=== PATIENT | male | born 1945 | race Caucasian/White ===

== ENCOUNTER 2017-01-06 12:46 | Inpatient (IN) | payer OTHER, MEDICARE ==
--- NOTE | 2017-01-06 13:25 | CPEKG ---
Heart Rate: 50 RR Interval: 1200 P-R Interval: 176 QRSD Interval: 106 QT Interval: 452 QTC Interval: 413 P [place]: 51 QRS [place]: -21 T Wave [place]: 46 EKG Severity - NORMAL ECG - EKG Impression: SINUS RHYTHM Electronically Signed By: Aidan Boateng 06-Jan-2017 21:07:19
[2017-01-06 13:40] LABS: % IMMATURE GRANULYOCYTES 0.6 % (0.0-1.1); HEMATOCRIT 45.8 % (40.0-51.0); HEMOGLOBIN 16.2 g/dL (13.7-17.5); MEAN CELL HEMOGLOBIN 33.1 pg (27.9-34.1); MEAN CELL HEMOGLOBIN CONCENTR. 35.4 g/dL (32.4-36.7); MEAN CELL VOLUME 93.5 fL (81.5-99.8); PLATELET COUNT 172 10^3/uL (150-400); RED CELL DISTRIBUTION WIDTH 12.8 % (11.5-15.2)
[2017-01-06 13:41] LABS: ABSOLUTE IMMATURE GRANULOCYTES 0.06 10^3/uL (0.00-0.10); ADD DIFF? NO; ADD MORPH? NO; ADD SCAN? NO; ATYPICAL LYMPHOCYTE FLAG 0 (0-99); FRAGMENT RBC FLAG 0 (0-99); LEFT SHIFT FLG 10 (0-99); LIPEMIA HEMOLYSIS FLAG 90 (0-99); PLATELET CLUMPS FLAG 0 (0-99)
[2017-01-06 13:56] LABS: ANION GAP 12 mEq/L (8-16); CALCIUM 9.5 mg/dL (8.5-10.4); CARBON DIOXIDE 24 mEq/l (22-31); CHLORIDE 108 mEq/L (97-110); CREATININE 0.8 mg/dL (0.7-1.3); GLOMERULAR FILTRATION RATE > 60; GLUCOSE 114 mg/dL (70-100); POTASSIUM 4.6 mEq/L (3.5-5.2); SODIUM 144 mEq/L (134-144)
[2017-01-06 14:07] LABS: TROPONIN I < 0.012 ng/mL (0-0.034)
[2017-01-06 14:10] LABS: INR 1.01 (0.83-1.16); PROTIME(PATIENT) 13.2 SEC (12.0-15.0)
[2017-01-06 14:11] LABS: APTT 27.5 SEC (23.0-38.0)
--- NOTE | 2017-01-06 14:42 | EDPHY ---
H & P Stated Complaint: fall skiing in november/ since/today had transient aphasia Time Seen by Provider: 01/06/17 13:19 HPI/ROS: Chief complaint: Head injury History of present illness: This is a 71-year-old male, on aspirin, who presents to the emergency department for evaluation of a head injury. Patient reports the head injury occurred in mid November, when he fell while skiing. Since then he has had intermittent headaches. He further reports ringing in his ears. Symptoms have been persistent. He is concerned today because today patient reports he started having difficulty finding words he wanted to say. Symptoms lasted approximately 30 minutes to an hour and then resolved. Patient denies other associated signs or symptoms including no paresthesias, no weakness or paralysis, no bowel or bladder dysfunction. No other injuries reported. Review of systems: A 10 point review of systems was obtained and other than described above was negative - Personal History Current Tetanus/Diphtheria Vaccine: Yes - Medical/Surgical History Hx Asthma: No Hx Chronic Respiratory Disease: No Hx Diabetes: Yes Hx Cardiac Disease: No Hx Renal Disease: No Hx Cirrhosis: No Hx Alcoholism: No Hx HIV/AIDS: No Hx Splenectomy or Spleen Trauma: No Other PMH: htn/diab/gout - Social History Smoking Status: Never smoked - Physical Exam Exam: General Appearance: Alert, nontoxic Eyes: PERRLA Respiratory: Lungs clear to auscultation bilaterally Cardiac: Regular rate and rhythm. Gastrointestinal: Bowel sounds normal. Abdomen is soft, nondistended, nontender. Neurological: Alert and oriented x4. Cranial nerves 2-12 grossly intact. Strength and sensation intact and symmetrical. No pronator drift. Skin: No acute lesions consistent with trauma Musculoskeletal: The head is normocephalic, atraumatic. Spine is nontender to palpation along its entire length. Patient moving all extremities without difficulty. Constitutional: Initial Vital Signs Temperature (C) 36.5 C 01/06/17 12:54 Heart Rate 60 01/06/17 12:54 Respiratory Rate 20 01/06/17 12:54 Blood Pressure 191/72 H 01/06/17 12:54 O2 Sat (%) 94 01/06/17 12:54 O2 Delivery Mode Room Air Allergies/Adverse Reactions: No Known Allergies Allergy (Unverified 01/06/17 12:51) Home Medications: Medication Instructions Recorded Allopurinol 01/06/17 Aspirin 81mg (*) 01/06/17 Glyburide 01/06/17 Kombiglyze Xr 2.5-1,000 mg Tab 01/06/17 Losartan Potassium 01/06/17 SIMVASTATIN 01/06/17 Medical Decision Making - Diagnostics Imaging Results: Imaging Impressions Head CT 01/06/17 13:34 Impression: Large left frontoparietal subacute subdural hematoma resulting in mass effect and rightward subfalcine herniation 13 mm. Recommendation: Neurosurgery. Findings and recommendations discussed with Emergency Department physician, KENYA Starr at 14:04 hour, 01/06/2017. Final report concurs with initial preliminary interpretation. Imaging: Discussed imaging studies w/ engineer gas pumping station Radiologist ED Course/Re-evaluation: Patient discussed with my secondary supervising physician Dr. Aidan Boateng. Patient presents to the emergency department with headache and tinnitus and now with expressive aphasia. He is nontoxic. Vital signs are stable. He has a nonfocal neurologic exam. CT scan reveals an intracranial bleed. Patient will be admitted to Neurosurgery, Dr. Steel for further evaluation and care. Differential Diagnosis: Included but not limited to intracranial bleed, TIA, CVA - Data Points Laboratory Results: Laboratory Results 01/06/17 13:21 01/06/17 13:21 01/06/17 01/06/17 01/06/17 13:21 13:21 13:21 WBC 9.30 10^3/uL 10^3/uL (3.80-9.50) RBC 4.90 10^6/uL 10^6/uL (4.40-6.38) Hgb 16.2 g/dL g/dL (13.7-17.5) Hct 45.8 % % (40.0-51.0) MCV 93.5 fL fL (81.5-99.8) MCH 33.1 pg pg (27.9-34.1) MCHC 35.4 g/dL g/dL (32.4-36.7) RDW 12.8 % % (11.5-15.2) Plt Count 172 10^3/uL 10^3/uL (150-400) MPV 11.0 fL fL (8.7-11.7) Neut % (Auto) 58.5 % % (39.3-74.2) Lymph % (Auto) 23.3 % % (15.0-45.0) Schley % (Auto) 9.4 % % (4.5-13.0) Eos % (Auto) 7.4 % % (0.6-7.6) Baso % (Auto) 0.8 % % (0.3-1.7) Nucleat RBC Rel Count 0.0 % % (0.0-0.2) Absolute Neuts (auto) 5.44 10^3/uL 10^3/uL (1.70-6.50) Absolute Lymphs (auto) 2.17 10^3/uL 10^3/uL (1.00-3.00) Absolute Monos (auto) 0.87 10^3/uL H 10^3/uL (0.30-0.80) Absolute Eos (auto) 0.69 10^3/uL H 10^3/uL (0.03-0.40) Absolute Basos (auto) 0.07 10^3/uL 10^3/uL (0.02-0.10) Absolute Nucleated RBC 0.00 10^3/uL 10^3/uL (0-0.01) Immature Gran % 0.6 % % (0.0-1.1) Immature Gran # 0.06 10^3/uL 10^3/uL (0.00-0.10) PT 13.2 SEC SEC (12.0-15.0) INR 1.01 (0.83-1.16) APTT 27.5 SEC SEC (23.0-38.0) Sodium 144 mEq/L mEq/L (134-144) Potassium 4.6 mEq/L mEq/L (3.5-5.2) Chloride 108 mEq/L mEq/L (97-110) Carbon Dioxide 24 mEq/l mEq/l (22-31) Anion Gap 12 mEq/L mEq/L (8-16) BUN 22 mg/dL mg/dL (7-23) Creatinine 0.8 mg/dL mg/dL (0.7-1.3) Estimated GFR > 60 Glucose 114 mg/dL H mg/dL (70-100) Calcium 9.5 mg/dL mg/dL (8.5-10.4) Troponin I < 0.012 ng/mL ng/mL (0-0.034) Departure - Departure Disposition: [facility] Acute Clinical Impression: Subdural hematoma Condition: Fair
[2017-01-06] MEDS ORDERED: SURGIFLO MATRIX KIT WITH THROMBIN TP ONE (15:14)
[2017-01-06] MEDS ORDERED: MANNITOL 20% 100 GM/500 ML BAG IV ONE (15:14)
[2017-01-06] MEDS ORDERED: BUPIVACAINE/EPI 0.25% 30 ML SDV ONE (15:14)
[2017-01-06] MEDS ORDERED: AVITENE POWDER 1 GM JAR TP ONE (15:14)
[2017-01-06] MEDS ORDERED: THROMBIN (BOVINE) 5,000 UNIT VIAL TP ONE (15:14)
[2017-01-06] MEDS ORDERED: BACITRACIN 50,000 UNITS/10 ML SYR IRR ONE (15:15)
[2017-01-06] MEDS ORDERED: ceFAZolin 2 GM/DEXTROSE 100 ML IV ONE (15:38)
[2017-01-06] MEDS ORDERED: levETIRAcetam 1,000 MG in NS 100 ML IV ONE (15:38)
[2017-01-06] MEDS ORDERED: MIDAZOLAM 2 MG/2 ML VIAL ONE (16:16)
[2017-01-06] MEDS ORDERED: PROPOFOL 200 MG/20 ML VIAL ONE ×2 (16:19→18:15)
[2017-01-06] MEDS ORDERED: fentaNYL 250 MCG/5 ML INJ ONE (16:19)
[2017-01-06] MEDS ORDERED: ROCURONIUM 50 MG/5 ML VIAL ONE (16:21)
[2017-01-06] MEDS ORDERED: DEXAMETHASONE 4 MG/ML VIAL ONE (16:21)
[2017-01-06] MEDS ORDERED: LIDOCAINE 2% 5 ML SDV ONE (16:21)
[2017-01-06] MEDS ORDERED: ONDANSETRON 4 MG/2 ML VIAL ONE (16:21)
--- NOTE | 2017-01-06 16:21 | GHP ---
[f rep st] HISTORY AND PHYSICAL DATE OF ADMISSION: 01/06/2017 REASON FOR ADMISSION: Left-sided subdural with word-finding issues and headache. HOSPITAL COURSE, HISTORY, MAJOR MEDICAL FINDINGS: The patient is a 71-year-old gentleman who was sk iing in November and at that point, collided with another child skiing. At that point in time, there w as only head trauma that he reports having the most recent months and he has developed a headache si nce that time. Recently, he developed ringing in his ears and approximately 2.5 hours prior to pres entation to the [facility] emergency room, he developed an acute onset headache as well as so me difficulty with word finding. While he has been in the emergency room, he has noticed that his w ord finding has somewhat improved but he still has a headache. He denies any weakness. Does not re port any loss of bowel or bladder control. REVIEW OF SYSTEMS: Review of systems is negative other than what is stated in the HPI. Please see pertinent negatives and pertinent positives. PAST MEDICAL HISTORY: Significant for hypercholesteremia, hypertension, diabetes, gout and inguinal hernia. PAST SURGICAL HISTORY: Is significant for a hernia repair. SOCIAL HISTORY: The patient smoked in the past but quit when he was 25. He does not drink any alco hol or use any illicit drugs. He lives locally in [place] with his who is at bedside today. FAMILY HISTORY: Family history significant for diabetes on both sides of his family, as well as pro state cancer in his brother. ALLERGIES: No known drug allergies. HOME MEDICATIONS: Include aspirin 81 mg 1 p.o. daily, glyburide, Kombiglyze, losartan, simvastatin and allopurinol. PHYSICAL EXAM: VITALS: Temp 36.5, heart rate is 60, respiratory rate is 20. His BP is 167/93, and he is 95% on room air. NEUROLOGIC: The patient is in no acute distress. He is alert, oriented x3 . Answers questions appropriately. His affect is appropriate to given situation. Cranial nerves 2 -12 grossly intact. EOMI and PERRLA. The patient has 5/5 and equal bilateral upper and bilateral l ower extremities including his deltoids, triceps, biceps, wrist flexors, extensors, interossei, intr insic as400 administrator, iliopsoas, hamstrings, quadriceps, plantar flexion, dorsiflexion and EHL. Negative Celine man's. Reflexes are 2+ bilaterally and equal. Negative pronator drift. DIAGNOSTIC REVIEW: Patient underwent a head CT, which demonstrated a large left frontoparietal suba cute subdural hematoma resulting in mass effect and right word subfalcine herniation, 13 mm. ASSESSMENT AND PLAN: The patient is a 71-year-old gentleman who sustained a fall in November, who has evidence of a subacute left-sided subdural hematoma that is symptomatic. The patient was seen both by Dr. Castillo and myself in the emergency room and the risks, benefits, and alternatives to proceedi ng with a left-sided craniotomy were thoroughly discussed with the patient. We will call for 2 unit s of platelets on hold given his recent aspirin use yesterday. We will also give him a g of Keppra in the OR for seizure prophylaxis, and I have ordered Ancef in preparation for the OR. He will be m saundra n.p.o. Consents were signed at bedside and all questions were answered by him and his . /[id number]/MODL
[2017-01-06] MEDS ORDERED: epHEDrine SULFATE 10 MG/ML SYR ONE (17:19)
[2017-01-06] MEDS ORDERED: MAGNESIUM HYDROXIDE 30 ML UDCUP PO PRN (18:33)
[2017-01-06] MEDS ORDERED: BISACODYL 10 MG SUPP PR PRN (18:33)
[2017-01-06] MEDS ORDERED: LACTULOSE 20 GM/30 ML UDCUP PO PRN (18:33)
[2017-01-06] MEDS ORDERED: PROMETHAZINE HCL 25 MG TAB PO PRN (18:33)
[2017-01-06] MEDS ORDERED: POLYETHYLENE GLYCOL 3350 17 GM PKT PO PRN (18:33)
[2017-01-06] MEDS ORDERED: ACETAMINOPHEN 325 MG TAB PO PRN (18:33)
--- NOTE | 2017-01-06 18:33 | POSTOPPROG ---
Post Op Note Date of Operation: 01/06/17 Surgeon: Kirk Castillo Labor Training Manager: Rodriguez Sosa Anesthesiologist: Vaughn Kirby Anesthesia: GET(General Endotracheal) Pre-op Diagnosis: left sided subacute Subdural hemorrhage Post-op Diagnosis: left sided subacute Subdural hemorrhage Indication: AMS Procedure: Craniotomy-left side Findings: subacute subdural hemorrhage Inf/Abcess present in the surg proc area at time of surgery?: No Depth: Organ Space EBL: 50-100 Complications: none Drains: Levon Forman
[2017-01-06] MEDS ORDERED: GLYBURIDE 1.25 MG PO PRN (18:50)
[2017-01-06] MEDS ORDERED: ENALAPRILAT DIHYDRATE 1.25 MG/ML VIAL ONE ×2 (18:52→19:06)
--- NOTE | 2017-01-06 19:07 | NEUSURGPN ---
Date of Surgery: 01/06/17 Post Op Day: 0 Assessment/Plan: 71M s/p craniotomy for evacuation of Left sided subdural with pre op symptoms of head ache and speech deficit, neuro intact post operatively -ICU overnight -EDER to thumbprint -keppra 1000mg BID while inpatient -cefazolin x 24hours post op -repeat CT in AM -HOB flat overnight -O2 8L non rebreather overnight -cid out in am -dvt ppx SCD/WALT only -HOld ASA for at least 7 days Pt seen by Dr. Castillo Subjective: awake appropriat, speech fluent, no complaints Objective: AAOx3 NAD no facial droop, EOMI, PEARLA cnii-xii grossly intact MAEx4 5/5+ +LT incision cdi JPx1 Urinary Catheter in Place: Yes Urinary Catheter Indication: Surgical Requirement - Physician Discussed Patient with : Arturo Patient Seen by : Arturo Neurosurgery Physical Exam - Vitals, I&O, Labs Vital Signs Temp Pulse Resp BP Pulse Ox 36.5 C 59 L 16 155/93 H 100 01/06/17 12:50 01/06/17 15:20 01/06/17 18:55 01/06/17 18:47 01/06/17 18:55 ICD10 Worksheet Patient Problems: Problems Problem Status Onset Subdural hematoma Acute
[2017-01-06] MEDS: niCARdipine/NACL 200 ML IV SCH (19:30)
[2017-01-06] MEDS ORDERED: glyBURIDE 2.5 MG TAB PO PRN (19:39)
[2017-01-06] MEDS ORDERED: NON-FORMULARY NEW DRUG (Simvastatin [Zocor] 20 MG) PO SCH (21:00)
[2017-01-06] MEDS: SENNOSIDES/DOCUSATE SODIUM TAB PO SCH (21:32)
[2017-01-06] MEDS: METFORMIN PO SCH (21:32)
[2017-01-06] MEDS: SAXAGLIPTIN PO SCH (21:32)
[2017-01-06] MEDS: ATORVASTATIN CALCIUM 10 MG TAB PO SCH (21:32)
[2017-01-06] MEDS: ceFAZolin 2 GM/DEXTROSE 100 ML IV SCH (22:05)
[2017-01-07] MEDS: HYDROCODONE/APAP 5/325 TAB PO PRN ×4 (02:08→22:38)
--- NOTE | 2017-01-07 04:37 | GOP ---
[f rep st] OPERATIVE REPORT DATE OF OPERATION: 01/06/2017 SURGEON: Kirk Castillo MD RN RADIATION ONCOLOGY: Rodriguez Sosa PA-C. ANESTHESIA: General endotracheal anesthesia. PREOPERATIVE DIAGNOSIS: Left holohemispheric subacute subdural hematoma with brain compression, mid line shift, headaches, and word-finding difficulties. POSTOPERATIVE DIAGNOSIS: Left holohemispheric subacute subdural hematoma with brain compression, mi dline shift, headaches, and word-finding difficulties. PROCEDURE PERFORMED: Left frontoparietal craniotomy for evacuation of some subacute subdural hemato ma and placement of a subdural drain. FINDINGS: Subacute subdural hematoma under high pressure upon dural opening, completely evacuated a t the end of surgery. SPECIMENS: None. ESTIMATED BLOOD LOSS: 50 cc. INDICATIONS: The patient is a pleasant 71-year-old gentleman on a baby aspirin for general health w ho had blunt head trauma several weeks ago. He has been doing fine but today had a brief episode of word-finding difficulties and some crescendo headaches. He is improved in the emergency room, but a head CT was done that showed a very sizable left frontotemporoparietal holohemispheric subdural me asuring approximately 3 cm at its maximal thickness with brain compression and shift to the right. Given the size of the subdural along and the fact that the patient started to have concerning neurol ogic symptoms, I recommend evacuation. Risks and benefits were discussed. All questions were answe red. I met with he and his before surgery for 30 minutes and then they did sign informed conse nt. DESCRIPTION OF PROCEDURE: The patient was brought into the operating room and a sign-in was perform ed. He was given 2 g of IV Ancef for infection prevention. He was given 1 g of IV Keppra for seizu re prophylaxis and 2 units of platelets were ordered as the patient was on an aspirin. He was induc ed under general anesthesia and an endotracheal tube was placed. Appropriate IV access was obtained . SCDs were placed to prevent DVT. He was placed supine in a neutral position on a head rest on a regular operating table. A linear incision in the sagittal plane was planned on the left side at th e midpupillary line measuring approximately 7 cm in length centered over the coronal suture. There was parted and a small amount was shaved, and the scalp was washed with ChloraPrep and chlorhexidine shampoo, rubbing alcohol, and then the scalp was sterilized with ChloraPrep solution. After this d ried, sterile towels, and Ioban, and a cranial drape create a sterile surgical field prior to initia ting the procedure. All members of the surgical, anesthetic, and nursing teams performed a time-in where side, operation, patient, allergies, and the other necessary checklist items were reviewed. O nce we all agreed to proceed, 10 cc of a local 0.25% Marcaine with 1:200,000 parts of epinephrine wa s injected along the planned incision line. A #15 scalpel was used to incise the skin, dermis, and subcutaneous tissues down to the skull with a periosteal elevator was used to sweep the periosteum a side and a Weitlaner retractor was used. A self-retaining Weitlaner retractor was then placed. Ran ey clips were placed for scalp hemostasis. A state's attorney bit was used to make a round alvarado hole at t he most posterior portion of our incision in the parietal bone. An oval-shaped craniotomy was plann ed, extending all the way around the frontal and parietal bones that were exposed. Care was taken n ot to make the cut too close to midline to prevent injuring the superior sagittal sinus, with the br idging veins there. The craniotomy was turned without issue and placed aside, and the cranial flap was placed aside, wrapped in antibiotic-soaked gauze. Dural bleeders were coagulated and a cruciate incision was made in the dura with a #11 blade and extended with the Metzenbaum scissors. Immediat lawrence upon opening the dura, there was a gush of maroon blood indicating a subacute subdural hematoma. This was evacuated completely with multiple rounds of irrigation, head of bed maneuvers, and the C O2 was normalized to allow for brain re-expansion. After we had evacuated the subdural in its entire ty, a #7 flat EDER was placed in the subdural space tunneling out posteriorly to the incision line. T he dura was flapped down and closed with 4-0 Nurolon sutures. A layer of hemostatics was placed guillermo ng the bony edges and covered the dura and gentle tamponade was used to provide hemostasis so blood would not drain back into the cranium. The bone flap was plated with 4 mm screws and cranial plates and replaced. A slotted posterior bur hole cover was used so that the drain would be able to exit the cranium and pulled in a few days. The bone flap was secured to the skull and Gelfoam was used t o pack the crack so blood could not run down and into the epidural or subdural space. The drain was tested and found that it could be pulled. Copious antibiotic irrigation was used and then we close d the galea with inverted 2-0 Vicryl sutures and the skin with a 4-0 Monocryl in a running baseball fashion. The drainage tube was secured with a Vicryl suture and a bulb was placed to thumbprint suc tion. The drapes were removed. The scalp was washed and a layer of antibiotic ointment was applied along the incision line. The patient's hair was washed and he was then returned to anesthesia wher e he was reversed from anesthesia and extubated without complication. He was taken to the recovery room in good condition, neurologically stable, with instructions for ICU for neuro checks overnight, head of bed flat bed rest, EDER drain to thumbprint suction, and a head CT in the morning. I updated his on the events of the procedure and she expressed her gratitude. All counts were correct a nd there were no immediate surgical or anesthetic complications. The patient was in stable neurolog ic condition before I left the hospital. IMPLANTS: Cranial plates and screws from the [employer] system. /[id number]/MODL
[2017-01-07] MEDS: ceFAZolin 2 GM/DEXTROSE 100 ML IV SCH ×2 (05:52→13:53)
--- NOTE | 2017-01-07 08:22 | NEUSURGPN ---
Date of Surgery: 01/06/17 Post Op Day: 1 Assessment/Plan: 71 yo M s/p craniotomy for evacuation of left sided subdural with pre op symptoms of head ache and speech deficit POD #1 Plan: -ICU-continue at this time -EDER to thumbprint-likely continue for 2-3 days -keppra 1000mg BID while inpatient -cefazolin x 24hours post op-to end today -repeat CT shows improvement but continued noted blood-will continue with EDER at this time -images/pt reviewed with Dr Castillo -HOB-can start to increase -O2 8L non rebreather-continue due to pneumocephalus -cid out this am -dvt ppx SCD/WALT only -Hold ASA for at least 7 days -films reviewed with Patient and as well -warning signs given -call with any questions or concerns Subjective: No new complaints or concerns. Speech better overall. No neck/chest/abd or gu complaints. Pt with expected incisional pain Objective: AAOx3 NAD no facial droop, EOMI, PEARLA cnii-xii grossly intact MAEx4 5/5+ +LT incision cdi JPx1 Neuro Check Frequency: as ordered Urinary Catheter in Place: Yes Urinary Catheter Indication: Other (Use Comment) (to be removed this am) Catheter Insertion Date: 01/06/17 - Physician Discussed Patient with : Anna Patient Seen by : Anna Neurosurgery Physical Exam - Vitals, I&O, Labs I and O 01/06/17 01/07/17 01/08/17 05:59 05:59 05:59 Intake Total 3270 Output Total 2875 Balance 395 Weight 90.3 kg Intake: Oral (ml) 700 IV Intake (ml) 2373 Platelets (ml) 197 Output: Urine (ml) 2625 Catheter 2625 Estimated Blood Loss (ml) 150 Wound Drainage (ml) 100 Left Parietal Levon 100 Forman Vital Signs Temp Pulse Resp BP Pulse Ox 36.6 C 66 11 L 131/58 H 100 01/07/17 07:18 01/07/17 07:18 01/07/17 07:18 01/07/17 07:18 01/07/17 07:18 ICD10 Worksheet Patient Problems: Problems Problem Status Onset Subdural hematoma Acute
[2017-01-07] MEDS: LOSARTAN POTASSIUM 50 MG TAB PO SCH (08:30)
[2017-01-07] MEDS: SENNOSIDES/DOCUSATE SODIUM TAB PO SCH ×2 (08:30→20:32)
[2017-01-07] MEDS ORDERED: NON-FORMULARY NEW DRUG (Losartan Potassium [Losartan Potassium] 100 MG) PO SCH (09:00)
[2017-01-07] MEDS ORDERED: levETIRAcetam 1,000 MG in NS 100 ML IV SCH (09:00)
[2017-01-07] MEDS: SAXAGLIPTIN PO SCH ×2 (13:10→18:16)
[2017-01-07] MEDS: METFORMIN PO SCH ×2 (13:10→18:16)
[2017-01-07] MEDS: TRANEXAMIC ACID 650 MG TAB PO SCH ×2 (16:25→20:32)
[2017-01-07] MEDS ORDERED: DESMOPRESSIN ACETATE 30 MCG in NS 50 ML IV ONE (16:30)
[2017-01-07] MEDS: levETIRAcetam 500 MG TAB PO SCH (20:32)
[2017-01-07] MEDS: ATORVASTATIN CALCIUM 10 MG TAB PO SCH (20:32)
--- NOTE | 2017-01-07 20:55 | GCON ---
[f rep st] CONSULTATION CRITICAL CARE CONSULTATION. DATE OF CONSULTATION: 01/07/2017 REASON FOR CONSULTATION: Intensive care unit and medical management of a patient with a subdural he matoma. HISTORY: The patient is a pleasant 71-year-old gentleman who had a ski accident over 1 month ago wi th some associated head trauma. He has been on aspirin. Yesterday he presented to the emergency de partment with neurologic symptoms. This was associated with increased headache. He had ringing in his ears and was apparently having trouble word finding during a hike with his . He was found t o have a large left-sided subdural hematoma that was felt to be subacute. He was taken to the [facility] room last night where craniotomy and drainage was performed. He was returned to the intensive care unit in good condition for monitoring. Neurologic symptoms have improved. He is on Keppra for seizure prophylaxis. Repeat CT scan of the head shows improvement but also some evidence of contin ued bleeding. He did receive platelets yesterday and tranexamic acid. PT and PTT were normal. He does have a Levon-Forman drain in with some bright red blood still being evacuated. He is being fo llowed closely by Neurosurgery. Aspirin, obviously, is being held. PAST MEDICAL HISTORY: Remarkable for type 2 diabetes (for which he takes oral agents), systemic hyp ertension, hyperlipidemia, a history of gout, and previous herniorrhaphy. SOCIAL HISTORY: The patient is . He smoked insignificantly in his 20s. He drinks no alcoho l. He is active, athletic. FAMILY HISTORY: Diabetes, prostate cancer in his brother. REVIEW OF SYSTEMS: Unremarkable for heart disease or lung disease. He has seen Urology for bladder /prostate issues. A 10-point review of systems is otherwise negative. PHYSICAL EXAMINATION: CONSTITUTIONAL: A gentleman who is somewhat lethargic and sleepy, but is eas carlos arousable, responsive, and appropriate. His is at his bedside. VITAL SIGNS: Blood pressu re is 130/60, heart rate 70 with sinus rhythm on the monitor, respiratory rate is 16. He is on oxyg en at 8 L for pneumocephalus with saturations of 100%. He is afebrile. HEENT: Remarkable for the craniotomy scar and drain in place. There is no evidence of infection. Pupils appear equal. There is no jugular venous distention, lymphadenopathy, or thyromegaly. CHEST: Clear. HEART: Regular in rate and rhythm without murmurs or gallops. ABDOMEN: Soft, nontender. Bowel sounds are present but somewhat diminished. EXTREMITIES: Unremarkable. : There is no Lucero catheter in place. H e has not urinated, and bladder scan shows approximately 250 cc of urine in the bladder. NEUROLOGIC : Grossly nonfocal, and he is oriented but responds somewhat slowly. DATABASE: CT scans of the head are as outlined above. Laboratory shows a white blood cell count of 9000, hematocrit 45, and normal platelet count. PT and PTT on admission were normal. Basic metabolic panel is normal, with the exception of some elevated blood sugars between 114 and approximately 230. The last blood sugar was 197. ASSESSMENT: 1. Subdural hematoma. This has been drained with decreased mass effect and improvement in neurolog ic symptoms. However, he has continued to have some bleeding and is being followed closely by Neuro surgery. He has a Levon Forman drain in place, which is working well. 2. History of type 2 diabetes. His usual outpatient medications are being continued, and he is doi ng well. 3. Hypertension. Blood pressures have intermittently run high here. He is on his usual dose of lo sartan and, in addition, has p.r.n. nicardipine ordered. PLAN AND RECOMMENDATIONS: The patient will be kept in the intensive care unit with close neuro chec ks and followup. Repeat CT scans will be left up to Neurosurgery, probably within a day or 2. Rosario capellan will be intermittently followed. Blood pressure will be monitored and treated accordingly if he is hypertensive. Glucoses will be monitored with additional coverage given if needed. All the above was discussed with the patient and his . Further plans and recommendations will b e made based upon his progress over the next 12-24 hours. /[id number]/MODL
[2017-01-07] MEDS: ONDANSETRON 4 MG/2 ML VIAL IVP PRN (22:20)
[2017-01-08 05:18] LABS: ANION GAP 10 mEq/L (8-16); CARBON DIOXIDE 23 mEq/l (22-31); CHLORIDE 104 mEq/L (97-110); CREATININE 0.7 mg/dL (0.7-1.3); GLOMERULAR FILTRATION RATE > 60; GLUCOSE 201 mg/dL (70-100); POTASSIUM 4.2 mEq/L (3.5-5.2); SODIUM 137 mEq/L (134-144)
[2017-01-08] MEDS: ONDANSETRON 4 MG/2 ML VIAL IVP PRN (07:50)
[2017-01-08] MEDS: niCARdipine/NACL 200 ML IV SCH (08:48)
[2017-01-08] MEDS: LOSARTAN POTASSIUM 50 MG TAB PO SCH (09:38)
[2017-01-08] MEDS: TRANEXAMIC ACID 650 MG TAB PO SCH ×2 (09:38→20:46)
[2017-01-08] MEDS: SAXAGLIPTIN PO SCH ×2 (09:38→17:30)
[2017-01-08] MEDS: levETIRAcetam 500 MG TAB PO SCH ×2 (09:38→20:47)
[2017-01-08] MEDS: METFORMIN PO SCH ×2 (09:38→17:30)
[2017-01-08] MEDS: SENNOSIDES/DOCUSATE SODIUM TAB PO SCH ×2 (09:39→20:46)
--- NOTE | 2017-01-08 10:15 | NEUSURGPN ---
Assessment/Plan: 71 yo M s/p craniotomy for evacuation of left sided subdural with pre op symptoms of head ache and speech deficit POD #2 Plan: -ICU-continue at this time -Neuro- Stable and doing well but struggling with nausea this morning -Continue IV fluids at 100.hr -Antiemetics onboard -EDER to thumbprint-likely continue for today stilll -keppra 1000mg BID while inpatient - Will obtain repeat CT tomorrow am -Encourage PT/OT up and out of bed -dvt ppx SCD/WALT only -Hold ASA for at least 7 days -call with any questions or concerns -Patient discussed with Dr. Castillo Subjective: Patient feels he is clearer cognitively this morning but struggling with nausea that occurs when he gets up and out of bed. Has mild headache as well when getting out of bed. Has not eaten yet today. Objective: AAOx3 NAD no facial droop, EOMI, PERRLA cnii-xii grossly intact MAEx4 5/5+ +LT incision cdi JPx1- serosang in buld- thumbprint suction Catheter Insertion Date: 01/06/17 - Physician Discussed Patient with : Anna Patient Seen by : Anna Neurosurgery Physical Exam - Vitals, I&O, Labs I and O 01/07/17 01/08/17 01/09/17 05:59 05:59 05:59 Intake Total 3270 2533 Output Total 2875 1390 Balance 395 1143 Weight 90.3 kg Intake: Oral (ml) 700 1750 IV Intake (ml) 2373 742 IV Infused (ml) 41 niCARdipine/NACL 200 ml @ 41 Titrate IV CONT SHAQUILLE Rx#: [id number] Platelets (ml) 197 Output: Urine (ml) 2625 775 Catheter 2625 575 Toilet 200 Estimated Blood Loss (ml) 150 Wound Drainage (ml) 100 615 Left Parietal Levon 100 615 Forman Other: Bladder Scan Volume (ml) Catheter 450 Post Void Residual Scan Volume (ml) Catheter 100 Vital Signs Temp Pulse Resp BP Pulse Ox 36.8 C 52 L 11 L 160/92 H 97 01/08/17 08:00 01/08/17 08:00 01/08/17 08:00 01/08/17 08:00 01/08/17 08:00 Laboratory Results 01/08/17 04:40 ICD10 Worksheet Patient Problems: Problems Problem Status Onset Subdural hematoma Acute
[2017-01-08] MEDS: TAMSULOSIN HCL 0.4 MG CAP PO SCH (10:43)
[2017-01-08] MEDS: NS W/ 20 KCl/L 1,000 ML IV SCH ×2 (12:50→23:42)
--- NOTE | 2017-01-08 12:59 | PDINTPN ---
[facility] Tender Progress Note Assessment/Plan: Assessment: Subdural hematoma, status post craniotomy and evacuation. Improving mass effect. Improved neurologic status. On Keppra. Drainage appears to be improving. Type 2 diabetes. Glucose is high but acceptable. On oral medications. No indication for insulin at this time. Urinary retention. Required straight catheterization earlier. Was able to void finally last night. Will start Flomax. He sees Angel Mccain as a urologist for bladder issues. Hypertension. He is on his usual Cozaar but blood pressures continue to run high. On a Cardizem drip this morning. I will add p.r.n. hydralazine. Plan: Continue care in the intensive care unit. Continue blood pressure control, Levon-Froman drainage. Continue neuro checks. Follow urinary retention, no Lucero for now. I have started Flomax and p.r.n. hydralazine. All the above was discussed with nursing and the ICU multi disciplinary team. Neurosurgery notes reviewed. 30 minutes of CC time spent directly with the patient. Subjective: Sleeping, arousable, some headache. Overall, feels better Objective: Vital Signs Temp Pulse Resp BP Pulse Ox 36.8 C 64 18 136/64 H 94 01/08/17 08:00 01/08/17 12:00 01/08/17 12:00 01/08/17 12:00 01/08/17 12:00 Laboratory Results 01/08/17 04:40 01/07/17 01/08/17 01/09/17 05:59 05:59 05:59 Intake Total 3270 2533 Output Total 2875 1390 Balance 395 1143 PT 13.2 SEC (12.0-15.0) 01/06/17 13:21 INR 1.01 (0.83-1.16) 01/06/17 13:21 Laboratory Tests 01/07/17 01/07/17 01/08/17 08:29 12:43 07:38 POC Glucose 232 H 197 H 186 H Physical Exam - Physical Exam General Appearance: no apparent distress EENT: other (On room air. Surgical site is clean. Levon-Forman drain in place. Less bloody, more serous.) Neck: normal inspection Respiratory: lungs clear Cardiac/Chest: bradycardia (Sinus) Abdomen: normal bowel sounds, non-tender, soft Male Genitalia: other (Required straight catheterization earlier for 650 cc of urine as a postvoid residual) Skin: normal color, warm/dry Extremities: No pedal edema Neuro/Psych: no motor/sensory deficits, No cognition abnormalities ICD10 Worksheet Patient Problems: Problems Problem Status Onset Subdural hematoma Acute
[2017-01-08] MEDS: hydrALAZINE 20 MG/ML VIAL IVP PRN (13:25)
[2017-01-08] MEDS: ATORVASTATIN CALCIUM 10 MG TAB PO SCH (20:46)
[2017-01-09 05:20] LABS: ANION GAP 6 mEq/L (8-16); CALCIUM 8.9 mg/dL (8.5-10.4); CARBON DIOXIDE 23 mEq/l (22-31); CHLORIDE 105 mEq/L (97-110); CREATININE 0.7 mg/dL (0.7-1.3); GLOMERULAR FILTRATION RATE > 60; GLUCOSE 121 mg/dL (70-100); POTASSIUM 4.3 mEq/L (3.5-5.2); SODIUM 134 mEq/L (134-144)
[2017-01-09 07:45] LABS: HEMATOCRIT 37.8 % (40.0-51.0); HEMOGLOBIN 13.2 g/dL (13.7-17.5); MEAN CELL HEMOGLOBIN 32.8 pg (27.9-34.1); MEAN CELL HEMOGLOBIN CONCENTR. 34.9 g/dL (32.4-36.7); RED BLOOD CELL COUNT 4.02 10^6/uL (4.40-6.38); RED CELL DISTRIBUTION WIDTH 12.7 % (11.5-15.2)
--- NOTE | 2017-01-09 08:05 | SOAPPROG ---
SOAP Progress Note Assessment/Plan: Assessment: 71 yo male POD #3 from left sided crani for SDH Neuro stable TOLENTINO improved, Nausea improved Ongoing urinary retention and constipation FREDDY still productive CTH today improved compared to 01/07 Plan: Continue ICU obs with freddy to remain in place. Continue Flomax PT/OT/ST as tolerated CTH and pt exam discussed with Dr. Castillo this AM 01/09/17 07:58 01/09/17 08:06 Subjective: lying in bed comfortable. Denies TOLENTINO or new neuro changes was unable to urinate overnight which required straight cath x 2 Objective: Vital Signs Temp Pulse Resp BP Pulse Ox 36.8 C 45 L 16 138/59 H 94 01/08/17 08:00 01/09/17 06:00 01/09/17 06:00 01/09/17 06:00 01/09/17 06:00 Laboratory Results 01/09/17 07:30 01/09/17 04:15 01/08/17 01/09/17 01/10/17 05:59 05:59 05:59 Intake Total 2533 3372 Output Total 1390 2255.5 Balance 1143 1116.5 PT 13.2 SEC (12.0-15.0) 01/06/17 13:21 INR 1.01 (0.83-1.16) 01/06/17 13:21 freddy: 380 ml Neuro: A+0x4 no facial droop no pronator drift equal strength throughout Incision: covered with abx ointment ICD10 Worksheet Patient Problems: Problems Problem Status Onset Subdural hematoma Acute
[2017-01-09] MEDS: SAXAGLIPTIN PO SCH ×2 (08:08→17:09)
[2017-01-09] MEDS: METFORMIN PO SCH ×2 (08:08→17:09)
[2017-01-09] MEDS: TRANEXAMIC ACID 650 MG TAB PO SCH ×2 (08:08→19:51)
[2017-01-09] MEDS: levETIRAcetam 500 MG TAB PO SCH ×2 (08:09→19:51)
[2017-01-09] MEDS: TAMSULOSIN HCL 0.4 MG CAP PO SCH (08:09)
[2017-01-09] MEDS: LOSARTAN POTASSIUM 50 MG TAB PO SCH (08:09)
[2017-01-09] MEDS: SENNOSIDES/DOCUSATE SODIUM TAB PO SCH ×2 (08:09→19:51)
[2017-01-09] MEDS: hydrALAZINE 20 MG/ML VIAL IVP PRN ×2 (11:12→18:34)
[2017-01-09] MEDS: niCARdipine/NACL 200 ML IV SCH (17:02)
--- NOTE | 2017-01-09 17:05 | PDINTPN ---
Director Of Event Management Progress Note Assessment/Plan: Assessment: Subdural hematoma, status post craniotomy and evacuation. Improving mass effect. Improved neurologic status. On Keppra. Drainage appears to be improving. Type 2 diabetes. Glucose is high but acceptable. On oral medications. No indication for insulin at this time. Urinary retention. Required straight catheterization earlier. Was able to void finally last night. Will start Flomax. He sees Angel Mccain as a urologist for bladder issues. Hypertension. He is on his usual Cozaar but blood pressures continue to run high. Off Cardizem comma can get p.r.n. hydralazine. Plan: Continue care in the intensive care unit. Continue blood pressure control, Levon-Forman drainage. Continue neuro checks. Follow urinary retention, no Lucero for now. Continue Flomax. All the above was discussed with the patient's , nursing and the ICU multi disciplinary team. Neurosurgery notes reviewed. 25 minutes of CC time spent directly with the patient. Subjective: Doing well. Feels better, brighter. Up in the chair. Denies significant headache. Asking about getting drain out Objective: Vital Signs Temp Pulse Resp BP Pulse Ox 37.1 C 55 L 16 154/63 H 94 01/09/17 12:00 01/09/17 16:00 01/09/17 16:00 01/09/17 16:00 01/09/17 16:00 Laboratory Results 01/09/17 07:30 01/09/17 04:15 01/08/17 01/09/17 01/10/17 05:59 05:59 05:59 Intake Total 2533 3372 Output Total 1390 2255.5 Balance 1143 1116.5 PT 13.2 SEC (12.0-15.0) 01/06/17 13:21 INR 1.01 (0.83-1.16) 01/06/17 13:21 Physical Exam - Physical Exam General Appearance: alert, no apparent distress EENT: other (Wound fine, drain in place. On room air.) Neck: supple, normal inspection Respiratory: lungs clear, normal breath sounds Cardiac/Chest: regular rate, rhythm, bradycardia (Regular rate and rhythm to bradycardic at times) Abdomen: normal bowel sounds, non-tender, soft Skin: normal color, warm/dry Extremities: No pedal edema Neuro/Psych: no motor/sensory deficits, No cognition abnormalities ICD10 Worksheet Patient Problems: Problems Problem Status Onset Subdural hematoma Acute
[2017-01-09] MEDS: ATORVASTATIN CALCIUM 10 MG TAB PO SCH (19:51)
[2017-01-09] MEDS ORDERED: CALCIUM CARBONATE 500 MG CHEWABLE TAB PO PRN (21:17)
[2017-01-10] MEDS: SAXAGLIPTIN PO SCH ×2 (07:30→18:08)
[2017-01-10] MEDS: METFORMIN PO SCH ×2 (07:30→18:08)
[2017-01-10] MEDS: TRANEXAMIC ACID 650 MG TAB PO SCH ×2 (08:55→20:39)
[2017-01-10] MEDS: levETIRAcetam 500 MG TAB PO SCH ×2 (08:55→20:38)
[2017-01-10] MEDS: LOSARTAN POTASSIUM 50 MG TAB PO SCH (08:55)
[2017-01-10] MEDS: SENNOSIDES/DOCUSATE SODIUM TAB PO SCH ×2 (08:55→20:40)
[2017-01-10] MEDS: TAMSULOSIN HCL 0.4 MG CAP PO SCH (08:55)
--- NOTE | 2017-01-10 10:40 | SOAPPROG ---
SOAP Progress Note Assessment/Plan: Assessment: 71 yo male POD #4 from left sided crani for SDH Neuro stable TOLENTINO improved, Nausea improved able to urinate now, but has PVR, sees Dr. Mccain for his issues and will f/u as outpt with him EDER is mostly clear and 60ml, (CSF) CTH 5/5 improved with improved MLS Plan: Discussed with Dr. Anna Turner DC EDER per Dr. Castillo transfer to floor follow neuro exam call with any questions Subjective: awake, alert, in bedside chair, feeling good No neuro deficits or TLOENTINO Objective: Vital Signs Temp Pulse Resp BP Pulse Ox 37.1 C 71 21 H 128/54 H 93 01/10/17 07:00 01/10/17 09:00 01/10/17 09:00 01/10/17 09:00 01/10/17 09:00 Laboratory Results 01/09/17 07:30 01/09/17 04:15 01/09/17 01/10/17 01/11/17 05:59 05:59 05:59 Intake Total 3372 3061 Output Total 2255.5 1437.5 Balance 1116.5 1623.5 PT 13.2 SEC (12.0-15.0) 01/06/17 13:21 INR 1.01 (0.83-1.16) 01/06/17 13:21 NEURO: PERRLA, speech clear EOMI, no droop no pronator drift equal strength ICD10 Worksheet Patient Problems: Problems Problem Status Onset Subdural hematoma Acute
[2017-01-10] MEDS ORDERED: LIDOCAINE 1% 30 ML SDV ONE (10:43)
[2017-01-10] MEDS: hydrALAZINE 20 MG/ML VIAL IVP PRN (12:27)
--- NOTE | 2017-01-10 13:31 | PDINTPN ---
Dye Stand Loader Progress Note Assessment/Plan: Assessment: Subdural hematoma, status post craniotomy and evacuation. Improving mass effect. Improved neurologic status. On Keppra. Drainage Less. EDER to be pulled today. Type 2 diabetes. Glucoses OK: 130 - 160. On oral medications. No indication for insulin. Urinary retention. Required straight catheterization 2 days ago, avoiding acceptably now with smaller postvoid residuals. On Flomax. He sees Angel Mccain as a urologist for bladder issues and will follow up with him as an outpatient. Hypertension. He is on his usual Cozaar. Blood pressure is better. Plan: Continue care in the intensive care unit until drain is pulled. Monitor today after it is discontinued then consider transfer to a NS floor bed. Continue blood pressure control. Follow urinary retention/PVRs, no Lucero. Continue Flomax. All the above was discussed with the patient's , NS, nursing and the ICU multi disciplinary team. 20 minutes of CC time spent directly with the patient. Subjective: Doing well. No complaints. No headache. No nausea today, present yesterday. Eating Objective: Vital Signs Temp Pulse Resp BP Pulse Ox 37.1 C 58 L 13 140/60 H 94 01/10/17 07:00 01/10/17 13:00 01/10/17 13:00 01/10/17 13:00 01/10/17 13:00 Laboratory Results 01/09/17 07:30 01/09/17 04:15 01/09/17 01/10/17 01/11/17 05:59 05:59 05:59 Intake Total 3372 3061 Output Total 2255.5 1437.5 Balance 1116.5 1623.5 PT 13.2 SEC (12.0-15.0) 01/06/17 13:21 INR 1.01 (0.83-1.16) 01/06/17 13:21 Physical Exam - Physical Exam General Appearance: alert, no apparent distress, other (In chair) EENT: PERRL/EOMI, other (On room air. Incision looks good. EDER in place with mainly serous drainage at this point. To be pulled per neuro surgery.) Neck: normal inspection (No JVD) Respiratory: lungs clear Cardiac/Chest: regular rate, rhythm Abdomen: normal bowel sounds, non-tender, soft Skin: normal color, warm/dry Extremities: No pedal edema Neuro/Psych: no motor/sensory deficits, No cognition abnormalities ICD10 Worksheet Patient Problems: Problems Problem Status Onset Subdural hematoma Acute
[2017-01-10] MEDS: ATORVASTATIN CALCIUM 10 MG TAB PO SCH (20:39)
[2017-01-11 01:18] VITALS: TEMP 97.9
[2017-01-11] MEDS: hydrALAZINE 20 MG/ML VIAL IVP PRN (05:58)
[2017-01-11 08:03] VITALS: BP 144/61; PULSE 55; RESP 16; O2SAT 95
[2017-01-11] MEDS: TRANEXAMIC ACID 650 MG TAB PO SCH (08:40)
[2017-01-11] MEDS: LOSARTAN POTASSIUM 50 MG TAB PO SCH (08:40)
[2017-01-11] MEDS: levETIRAcetam 500 MG TAB PO SCH (08:40)
[2017-01-11] MEDS: SENNOSIDES/DOCUSATE SODIUM TAB PO SCH (08:40)
[2017-01-11] MEDS: TAMSULOSIN HCL 0.4 MG CAP PO SCH (08:40)
[2017-01-11] MEDS: METFORMIN PO SCH (08:41)
[2017-01-11] MEDS: SAXAGLIPTIN PO SCH (08:41)
--- NOTE | 2017-01-11 10:37 | SOAPPROG ---
SOAP Progress Note Assessment/Plan: Assessment: 71 yo male POD #5 from left sided crani for SDH Neuro stable feeling good sees Dr. Mccain for his urinary issues and will f/u as outpt with him Plan: DC Home today on Keppra and Norvasc. No TEA upon DC per Dr. Castillo Discussed with Dr. Castillo Will add NOrvasc 5mg QD upon DC and pt instructed to follow up with PCP in AM about his BP 01/11/17 10:34 Subjective: awake, alert, feeling good. Denies TOLENTINO or neuro changes Objective: Vital Signs Temp Pulse Resp BP Pulse Ox 36.6 C 55 L 16 144/61 H 95 01/11/17 08:00 01/11/17 08:00 01/11/17 08:00 01/11/17 08:40 01/11/17 08:00 Laboratory Results 01/09/17 07:30 01/09/17 04:15 01/10/17 01/11/17 01/12/17 05:59 05:59 05:59 Intake Total 3061 2900 Output Total 1437.5 Balance 1623.5 2900 PT 13.2 SEC (12.0-15.0) 01/06/17 13:21 INR 1.01 (0.83-1.16) 01/06/17 13:21 NEURO FELICIANO, sens +LT ambulates unassisted no droop no pronator drift incision: dried blood and ointment, no drainage from drain site or incision ICD10 Worksheet Patient Problems: Problems Problem Status Onset Subdural hematoma Acute
--- NOTE | 2017-01-11 11:14 | GDS ---
[f rep st] DISCHARGE SUMMARY Dr. Steel was the admitting physician. However, Dr. Castillo took over care. REASON FOR ADMISSION: Left-sided subdural hematoma with word-finding issues and headaches. HISTORY OF PRESENT ILLNESS: The patient is a pleasant 71-year-old gentleman on baby aspirin for [facility], who had a blunt head trauma several weeks ago. He was doing well until 01/06/2017, whe n he had a brief episode of word-finding difficulties and some crescendo headaches. He was seen and evaluated in [facility] Emergency Department and underwent a CT scan of the head, which demonstrated a sizable left frontal temporoparietal holohemispheric subdural hematoma measuring approximately 3 cm at its maximum thickness with brain compression and shift to the right. Given the size of the qureshi bdural, along with the fact that the patient had started to have concerning neurologic symptoms, it was recommended that he proceed with surgical intervention. On 01/06/2017, he underwent a left-side d craniotomy for evacuation of subdural hematoma. Postoperatively, he was transferred to the ICU wh ere he remained neurologically stable. On postop day #1, a CT scan performed demonstrated interval improvement of the subdural fluid collection, however, with some persistent midline shift as well as postoperative expected pneumocephalus. The patient was started on high-flow oxygen. His activity was advanced as tolerated; physical therapy and occupational therapy. He underwent a repeat CT scan of the head on 01/09/2017, which demonstrated interval improvement compared to the one on 7, and the patient continued to do well neurologically. His blood pressure was controlled with oral and IV blood pressure control medications. Ultimately, his blood pressure was controlled well enou gh with his oral Losartan, which he takes at home. However, it was in the 140s to 150s and we decid ed to add Norvasc 5 mg daily upon discharge. The patient had no seizure activities and continued to do well. He ambulated the hallways unassisted and had no headaches or neurologic deficits. He was deemed suitable and stable for discharge to home. DISCHARGE MEDICATIONS: He was provided medications for: Keppra 1000 mg p.o. b.i.d. and Norvasc 5 m g daily. Please note, the patient was also placed on tranexamic acid postoperatively, but was not discharged on this medication per Dr. Castillo. DISCHARGE INSTRUCTIONS: He was instructed to contact his computer hardware developer on 01/12/2017 to discuss adju sting his blood pressure medications. The patient was instructed to avoid aspirin and anti-inflamma tory medication until instructed otherwise at his postop appointment. He was provided discharge ins tructions for a postop craniotomy. We will follow up in approximately 7-10 days for a postop appointment. They were encouraged to cont act our office with any questions, concerns, or worsening symptoms. /[id number]/MODL
== END 2017-01-11 11:15 | disposition home or self-care (01) | DRG 27 ==
LOC: F2N 19:30
PROVIDERS: ADMIT Neurological Surgery; ATTEND Neurological Surgery
PROC: 30233R1 Transfusion of Nonautologous Platelets into Peripheral Vein, Percutaneous Approach (ICD-10-PCS; 2017-01-06)
PROC: 009400Z Drainage of Intracranial Subdural Space with Drainage Device, Open Approach (ICD-10-PCS; principal; 2017-01-06 16:30)
DX: S06.5X0A Traumatic subdural hemorrhage without loss of consciousness, initial encounter (principal); R33.9 Retention of urine, unspecified; I10 Essential (primary) hypertension; E11.9 Type 2 diabetes mellitus without complications; E78.00 Pure hypercholesterolemia, unspecified; M10.9 Gout, unspecified; V00.321A Fall from snow-skis, initial encounter; Y93.23 Activity, snow (alpine) (downhill) skiing, snowboarding, sledding, tobogganing and snow tubing; Y92.838 Other recreation area as the place of occurrence of the external cause
CPT/HCPCS: 92507-GN; 92523-GN; 97116-GP; 97161-GP; 97165-GO; 97535-GO; C1713; G8978-GP-CJ; G8979-GP-CI; G8980-GP-CI; G8987-GO-CI; G8987-GO-CJ; G8988-GO-CI; G8989-GO-CI; G9165-GN-CI; G9166-GN-CI; J0360; J0690; J1100; J1200; J1953; J2250; J2405; J2597; J2704; J3010; P9035

== ENCOUNTER 2017-01-17 12:09 | Emergency (ER) | payer OTHER, MEDICARE ==
[2017-01-17 12:43] LABS: % IMMATURE GRANULYOCYTES 0.6 % (0.0-1.1); ABSOLUTE IMMATURE GRANULOCYTES 0.06 10^3/uL (0.00-0.10); ADD DIFF? NO; ADD MORPH? NO; ADD SCAN? NO; ATYPICAL LYMPHOCYTE FLAG 0 (0-99); FRAGMENT RBC FLAG 0 (0-99); HEMATOCRIT 47.6 % (40.0-51.0); HEMOGLOBIN 16.3 g/dL (13.7-17.5); LEFT SHIFT FLG 90 (0-99); LIPEMIA HEMOLYSIS FLAG 90 (0-99); MEAN CELL HEMOGLOBIN 31.7 pg (27.9-34.1); MEAN CELL HEMOGLOBIN CONCENTR. 34.2 g/dL (32.4-36.7); MEAN CELL VOLUME 92.4 fL (81.5-99.8); MEAN PLATELET VOLUME 10.1 fL (8.7-11.7); PLATELET CLUMPS FLAG 0 (0-99); PLATELET COUNT 234 10^3/uL (150-400); RED BLOOD CELL COUNT 5.15 10^6/uL (4.40-6.38); RED CELL DISTRIBUTION WIDTH 12.4 % (11.5-15.2)
[2017-01-17] MEDS ORDERED: NS 1,000 ML IV ONE (12:56)
[2017-01-17 13:00] LABS: ALANINE AMINOTRANSFERASE 36 IU/L (21-72); ALBUMIN 4.1 g/dL (3.5-5.0); ALKALINE PHOSPHATASE 60 IU/L (38-126); ANION GAP 13 mEq/L (8-16); ASPARTATE AMINOTRANSFERASE 22 IU/L (17-59); BILIRUBIN,TOTAL 0.8 mg/dL (0.1-1.4); CALCIUM 9.2 mg/dL (8.5-10.4); CARBON DIOXIDE 22 mEq/l (22-31); CHLORIDE 105 mEq/L (97-110); CREATININE 0.9 mg/dL (0.7-1.3); GLOMERULAR FILTRATION RATE > 60; GLUCOSE 115 mg/dL (70-100); POTASSIUM 4.3 mEq/L (3.5-5.2); SODIUM 140 mEq/L (134-144); TOTAL PROTEIN 6.4 g/dL (6.3-8.2)
--- NOTE | 2017-01-17 13:00 | EDPHY ---
H & P Stated Complaint: R/O infection, Tachy at rest HR 107, high/low Temp, fatigued Time Seen by Provider: 01/17/17 12:35 HPI/ROS: CHIEF COMPLAINT: Concern for infection HISTORY OF PRESENT ILLNESS: Patient is a 71-year-old man who comes to the emergency department with his concern for infection. He is 11 days status post craniotomy for subdural hemorrhage with Dr. Fonseca. He was released from the hospital several days ago. He has been recovering gradually but well. He states that he was more active than usual yesterday and was extremely fatigued before going to bed. He spent 4 hours washing off his deck in caring the hose. He states that his heart rate is usually in the 50s but since this morning and has been closer to 100. Also his blood pressure is typically around 120/130 systolic but today he had several measurements around 110 or 100. Also his temperature is slightly elevated with a high of 100.2 around 11 o'clock this morning. He denies being in any pain. He had no rashes or wounds. No headache , no nausea vomiting or diarrhea. His also states that he is fatigue easily today. Just after brushing his teeth he had to sit down and rest. Then again after shaving had to sit down and rest again. They called the surgery service who recommended he come here for evaluation. He states that he had been eating and drinking normally. REVIEW OF SYSTEMS: Constitutional: See HPI EENTM: denies: blurred vision, double vision, nose congestion Respiratory: denies: cough, shortness of breath Cardiac: denies: chest pain, irregular heart rate, lightheadedness, palpitations Gastrointestinal/Abdominal: denies: abdominal pain, diarrhea, nausea, vomiting, blood streaked stools Genitourinary: denies: dysuria, frequency, hematuria, pain Musculoskeletal: denies: joint pain, muscle pain Skin: denies: lesions, rash, jaundice, bruising Neurological: denies: headache, numbness, paresthesia, tingling, dizziness, weakness Hematologic/Lymphatic: denies: blood clots, easy bleeding, easy bruising Immunologic/allergic: denies: HIV/AIDS, transplant EXAM: GENERAL: Well-appearing, well-nourished and in no acute distress. HEAD: Wound clean dry and intact, no erythema , normocephalic. EYES: Pupils equal round and reactive to light, extraocular movements intact, sclera anicteric, conjunctiva are normal. ENT: TMs normal, nares patent, oropharynx clear without exudates. Moist mucous membranes. NECK: Normal range of motion, supple without lymphadenopathy or JVD. LUNGS: Breath sounds clear to auscultation bilaterally and equal. No wheezes rales or rhonchi. HEART: Regular rate and rhythm without murmurs, rubs or gallops. ABDOMEN: Soft, nontender, normoactive bowel sounds. No guarding, no rebound. No masses appreciated. BACK: No CVA tenderness, no spinal tenderness, step-offs or deformities EXTREMITIES: Normal range of motion, no pitting or edema. No clubbing or cyanosis. NEUROLOGICAL: Cranial nerves II through XII grossly intact. Normal speech, normal gait. 5/5 strength, normal movement in all extremities, normal sensation PSYCH: Normal mood, normal affect. SKIN: Warm, dry, normal turgor, no visible rashes or lesions. 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 - Family History Significant Family History: No pertinent family hx - Social History Smoking Status: Former smoker Alcohol Use: Sober Drug Use: None Constitutional: Initial Vital Signs Temperature (C) 36.8 C 01/17/17 12:18 Heart Rate 102 H 01/17/17 12:18 Respiratory Rate 18 01/17/17 12:18 Blood Pressure 116/80 01/17/17 12:18 O2 Sat (%) 93 01/17/17 12:18 O2 Delivery Mode Room Air Allergies/Adverse Reactions: No Known Allergies Allergy (Unverified 01/06/17 12:51) Home Medications: Medication Instructions Recorded Allopurinol [Allopurinol 300 MG 300 mg PO DAILY 01/06/17 (RX)] Cholecalciferol Vit D3 [Vitamin D3 2,000 units PO DAILY 01/06/17 (*)] Glyburide [Glyburide 1.25 mg] 1.25 mg PO BIDMEAL PRN 01/06/17 Losartan Potassium 100 mg PO DAILY 01/06/17 Saxagliptin HCl/Metformin HCl 1 each PO BID 01/06/17 [Kombiglyze Xr 2.5-1,000 mg Tab] Simvastatin [Zocor] 20 mg PO HS 01/06/17 Acetaminophen [Tylenol 325mg (*)] 650 mg PO Q4HRS PRN #0 tab 01/11/17 amLODIPine BESYLATE [Norvasc 5 mg 5 mg PO DAILY #60 tab 01/11/17 (*)] levETIRAcetam [Keppra 500 mg (*)] 1,000 mg PO BID #60 tab 01/11/17 Medical Decision Making ED Course/Re-evaluation: 1:50 p.m. the patient is feeling completely better after after receiving 500 cc of IV fluids. His mouth is dry he is drinking water. His creatinine is slightly higher than while he was admitted. I suspect he is simply dehydrated. He has no significant signs of infection. He is afebrile here. His relative tachycardia improved. I will continue to hydrate him. I spoke with Dr. Manuel Cadnelaria who agrees with this plan 2:20 p.m. the patient continues to feel well and is stable vital signs. He and his are eager to go home. We discussed hydration and indications for returning and signs of infection. They feel reassured and happy with this plan. Differential Diagnosis: Partial list of the Differential diagnosis considered include but were not limited to; wound infection, postoperative infection, sepsis, dehydration, electrolyte abnormality and although unlikely based on the history and physical exam, I also considered hemorrhage, CVA, acute coronary disease. I discussed these differential diagnoses and the plan with the patient as well as the usual and expected course. The patient understands that the diagnosis is provisional and that in medicine we are not always correct and that further workup is often warranted. Usual and customary warnings were given. All of the patient's questions were answered. The patient was instructed to return to the emergency department should the symptoms at all worsen or return, otherwise to followup with the physician as we discussed. - Data Points Laboratory Results: Laboratory Results 01/17/17 12:25 01/17/17 12:25 01/17/17 01/17/17 12:25 12:25 WBC 9.74 10^3/uL H 10^3/uL (3.80-9.50) RBC 5.15 10^6/uL 10^6/uL (4.40-6.38) Hgb 16.3 g/dL g/dL (13.7-17.5) Hct 47.6 % % (40.0-51.0) MCV 92.4 fL fL (81.5-99.8) MCH 31.7 pg pg (27.9-34.1) MCHC 34.2 g/dL g/dL (32.4-36.7) RDW 12.4 % % (11.5-15.2) Plt Count 234 10^3/uL 10^3/uL (150-400) MPV 10.1 fL fL (8.7-11.7) Neut % (Auto) 86.4 % H % (39.3-74.2) Lymph % (Auto) 8.2 % L % (15.0-45.0) Hutchinson % (Auto) 4.1 % L % (4.5-13.0) Eos % (Auto) 0.4 % L % (0.6-7.6) Baso % (Auto) 0.3 % % (0.3-1.7) Nucleat RBC Rel Count 0.0 % % (0.0-0.2) Absolute Neuts (auto) 8.41 10^3/uL H 10^3/uL (1.70-6.50) Absolute Lymphs (auto) 0.80 10^3/uL L 10^3/uL (1.00-3.00) Absolute Monos (auto) 0.40 10^3/uL 10^3/uL (0.30-0.80) Absolute Eos (auto) 0.04 10^3/uL 10^3/uL (0.03-0.40) Absolute Basos (auto) 0.03 10^3/uL 10^3/uL (0.02-0.10) Absolute Nucleated RBC 0.00 10^3/uL 10^3/uL (0-0.01) Immature Gran % 0.6 % % (0.0-1.1) Immature Gran # 0.06 10^3/uL 10^3/uL (0.00-0.10) Sodium 140 mEq/L mEq/L (134-144) Potassium 4.3 mEq/L mEq/L (3.5-5.2) Chloride 105 mEq/L mEq/L (97-110) Carbon Dioxide 22 mEq/l mEq/l (22-31) Anion Gap 13 mEq/L mEq/L (8-16) BUN 15 mg/dL mg/dL (7-23) Creatinine 0.9 mg/dL mg/dL (0.7-1.3) Estimated GFR > 60 Glucose 115 mg/dL H mg/dL (70-100) Calcium 9.2 mg/dL mg/dL (8.5-10.4) Total Bilirubin 0.8 mg/dL mg/dL (0.1-1.4) AST 22 IU/L IU/L (17-59) ALT 36 IU/L IU/L (21-72) Alkaline Phosphatase 60 IU/L IU/L (38-126) Total Protein 6.4 g/dL g/dL (6.3-8.2) Albumin 4.1 g/dL g/dL (3.5-5.0) Medications Given: Discontinued Medications Sodium Chloride (Ns) 1,000 mls @ 0 mls/hr IV ONCE ONE PRN Reason: Wide Open Stop: 01/17/17 12:57 Last Admin: 01/17/17 13:16 Dose: 1,000 mls Departure - Departure Disposition: Home, Routine, Self-Care Clinical Impression: Dehydration Condition: Fair Instructions: Dehydration (ED) Referrals: Antione Garcia MD [Primary Care Provider] - As per Instructions Kirk Castillo MD [Medical Doctor] - As per Instructions
[2017-01-17 14:37] VITALS: BP 138/74; PULSE 16; RESP 77; TEMP 97.9; O2SAT 93
== END 2017-01-17 14:35 | disposition home or self-care (01) ==
DX: E86.0 Dehydration (principal); E11.9 Type 2 diabetes mellitus without complications; I10 Essential (primary) hypertension; Z87.891 Personal history of nicotine dependence

== ENCOUNTER 2017-01-19 19:18 | Inpatient (IN) | payer OTHER, MEDICARE ==
--- NOTE | 2017-01-19 19:35 | CPEKG ---
Heart Rate: 61 RR Interval: 984 P-R Interval: 160 QRSD Interval: 102 QT Interval: 408 QTC Interval: 411 P Jenkins: 45 QRS Jenkins: -9 T Wave Jenkins: 75 EKG Severity - ABNORMAL ECG - EKG Impression: SINUS RHYTHM EKG Impression: MULTIPLE ATRIAL PREMATURE COMPLEXES Electronically Signed By: Syeda Lazcano 19-Jan-2017 22:46:27
--- NOTE | 2017-01-19 19:44 | EDPHY ---
H & P Time Seen by Provider: 01/19/17 19:30 HPI/ROS: CHIEF COMPLAINT: Slurred speech HISTORY OF PRESENT ILLNESS: The patient is a 71-year-old male who presents to the emergency with slurred speech. The patient sustained a ski injury on 11/21. He was helmeted but was able to continue skiing. He had periodically headaches. On 01/06 he was on a hike when he developed word-finding difficulty. He came to the emergency department was found to have a massive subdural hematoma. He was in the hospital for 5 days. He initially had a drain placed but this was removed. Since being discharged home he has been doing well until several days ago. He has had increased fatigue. 2 days ago he was seen in the emergency department. He had laboratory studies and was given IV fluid. He felt better was discharged home. Today you had increased fatigue. His left at 3:00 p.m. and he was reading a book. When she returned home at 6:00 p.m. he had slurred words. He also complains of mild numbness in his right hand. He has no other reported focal neurologic deficits. He denies headache or neck pain. No nausea or vomiting. No fevers or chills. REVIEW OF SYSTEMS: My complete review of systems is negative except as mentioned in the HPI. Past Medical/Surgical History: Includes diabetes type 2, hypertension, subdural hematoma Past surgical history: Includes craniotomy, hernia repair Social history: Patient does not currently smoke. Smoking Status: Former smoker Physical Exam: Vitals noted. 170/83, 64, 98% on room air GENERAL: Well-appearing, in no acute distress, alert. HEENT: Eyes normal to inspection, normal pharynx, no signs of dehydration. The patient's craniotomy scar appears well. Is clean dry and intact. There is no palpable mass. NECK: No thyromegaly, no lymphadenopathy, supple. RESPIRATORY: Clear to auscultation bilaterally, no rales, rhonchi or wheezing. CVS: Regular rate and rhythm, no rubs, murmurs, or gallops. ABDOMEN: Soft, nontender, nondistended, no organomegaly. BACK: Normal to inspection, no CVA tenderness. SKIN: Normal color, no rash, warm, dry. No pallor. EXTREMITIES: No pedal edema, no calf tenderness, no Homans sign or cords, no joint swelling. NEURO/PSYCH: Higher functions: Alert and Oriented x3. Patient has word-finding difficulty. Normal mood and affect. Cranial nerves: Normal as tested. Cerebellar: Normal as tested. Good finger to nose, good mynb-[id number]-sewq, normal gait. Peripheral exam: Normal motor exam. Normal sensation. Normal reflexes. Constitutional: Initial Vital Signs Temperature (C) 37 C 01/19/17 19:22 Heart Rate 61 01/19/17 19:22 Respiratory Rate 16 01/19/17 19:22 Blood Pressure 163/83 H 01/19/17 19:22 O2 Sat (%) 97 01/19/17 19:22 O2 Delivery Mode Room Air Allergies/Adverse Reactions: No Known Allergies Allergy (Unverified 01/19/17 19:45) Home Medications: Medication Instructions Recorded Acetaminophen [Tylenol 325mg (*)] 650 mg PO DAILY PRN 01/19/17 Allopurinol [Allopurinol 100 MG 100 mg PO DAILY 01/19/17 (*)] Cholecalciferol Vit D3 [Vitamin D3 2,000 units PO DAILY 01/19/17 (*)] Glyburide [Glyburide 1.25 mg] 1.25 mg PO BIDMEAL PRN 01/19/17 Losartan Potassium 100 mg PO DAILY 01/19/17 Saxagliptin HCl/Metformin HCl 1 each PO BID 01/19/17 [Kombiglyze Xr 2.5-1,000 Mg Tab] Simvastatin [Zocor] 20 mg PO DAILY 01/19/17 amLODIPine BESYLATE [Norvasc 5 mg 5 mg PO DAILY 01/19/17 (*)] levETIRAcetam [Keppra] 1,000 mg PO BID 01/19/17 Medical Decision Making - Diagnostics Imaging Results: Imaging Impressions Head CT 01/19/17 19:45 Impression: Increased size of a mixed density subdural hematoma overlying the left cerebral hemisphere post drain removal, with 10 mm of nycx-cm-kcfji midline shift, previously 8 mm. Findings discussed with Syeda Lazcano M.D., on January 19, 2017 at 2020 hours. ED Course/Re-evaluation: In the emergency department I discussed possible etiologies with the patient and his . I answered all her questions. Laboratory studies, EKG and head CT were ordered. The patient was not made a stroke alert because he had a craniotomy in 01/06/2017. He is not a tPA candidate. EKG shows normal sinus rhythm, normal rate, normal axis, normal intervals. Multiple atrial premature complexes. There are no ST or T-wave abnormalities. EKG is normal as interpreted by me. I rechecked the patient. No new neuro deficits on recheck. I reviewed the patient's laboratory studies. He had minimally elevated white count. Otherwise his CBC was unremarkable. Chemistry and coags were normal. On recheck the patient had worsening verbal function. He had word-finding difficulty. He was unable to name my watch and pen. He is able to do this initially. Head CT: Please refer the dictated report. The patient has an increasing subdural hematoma. There is slightly more shift. His more dense than previous images. I discussed discussed the case with Neurosurgery. Clarence Young was in the emergency department to evaluate the patient. Dr. Jatinder Morris is aware of the CT findings and the patient's worsening presentation. I discussed blood pressure management with Neurosurgery. They recommended started Cardene. 2117: The patient is completely aphasic. I answered the patient's 's questions. I again discussed the case with Neurosurgery 2139: Dr. Jatinder Morris evaluated the patient in the emergency department. He recommends admission. He does not plan on taking the patient to surgery at this time. The patient will be evaluated by Dr. Fonseca tomorrow for possible surgery. I discussed this with the patient. I answered all her questions. Differential Diagnosis: My differential includes but is not limited to subdural hematoma, epidural hematoma, subarachnoid hemorrhage, ischemic CVA, hemorrhagic CVA, electrolyte abnormality, sugar abnormality, dehydration Critical Care Time: Patient required 35 minutes of critical care time. This was exclusive of any unbundled procedure. This was due to the patient's subdural hematoma, changing neuro exam status, consultation with Neurosurgery on numerous occasions, treatment with Cardene for blood pressure control and frequent rechecks. - Data Points Laboratory Results: Laboratory Results 01/19/17 19:32 01/19/17 19:32 01/19/17 01/19/17 01/19/17 19:32 19:32 19:32 WBC 9.75 10^3/uL H 10^3/uL (3.80-9.50) RBC 4.26 10^6/uL L 10^6/uL (4.40-6.38) Hgb 14.1 g/dL g/dL (13.7-17.5) Hct 40.5 % % (40.0-51.0) MCV 95.1 fL fL (81.5-99.8) MCH 33.1 pg pg (27.9-34.1) MCHC 34.8 g/dL g/dL (32.4-36.7) RDW 12.8 % % (11.5-15.2) Plt Count 204 10^3/uL 10^3/uL (150-400) MPV 10.4 fL fL (8.7-11.7) Neut % (Auto) 59.9 % % (39.3-74.2) Lymph % (Auto) 24.8 % % (15.0-45.0) Rogers % (Auto) 11.6 % % (4.5-13.0) Eos % (Auto) 2.5 % % (0.6-7.6) Baso % (Auto) 0.4 % % (0.3-1.7) Nucleat RBC Rel Count 0.0 % % (0.0-0.2) Absolute Neuts (auto) 5.84 10^3/uL 10^3/uL (1.70-6.50) Absolute Lymphs (auto) 2.42 10^3/uL 10^3/uL (1.00-3.00) Absolute Monos (auto) 1.13 10^3/uL H 10^3/uL (0.30-0.80) Absolute Eos (auto) 0.24 10^3/uL 10^3/uL (0.03-0.40) Absolute Basos (auto) 0.04 10^3/uL 10^3/uL (0.02-0.10) Absolute Nucleated RBC 0.00 10^3/uL 10^3/uL (0-0.01) Immature Gran % 0.8 % % (0.0-1.1) Immature Gran # 0.08 10^3/uL 10^3/uL (0.00-0.10) PT 13.3 SEC SEC (12.0-15.0) INR 1.02 (0.83-1.16) APTT 26.2 SEC SEC (23.0-38.0) Sodium 139 mEq/L mEq/L (134-144) Potassium 3.9 mEq/L mEq/L (3.5-5.2) Chloride 105 mEq/L mEq/L (97-110) Carbon Dioxide 25 mEq/l mEq/l (22-31) Anion Gap 9 mEq/L mEq/L (8-16) BUN 15 mg/dL mg/dL (7-23) Creatinine 0.8 mg/dL mg/dL (0.7-1.3) Estimated GFR > 60 Glucose 97 mg/dL mg/dL (70-100) Calcium 9.5 mg/dL mg/dL (8.5-10.4) Departure - Departure Disposition: [facility] Inpatient Acute Clinical Impression: Aphasia, Subdural hematoma Condition: Fair
[2017-01-19 19:55] LABS: % IMMATURE GRANULYOCYTES 0.8 % (0.0-1.1); ABSOLUTE IMMATURE GRANULOCYTES 0.08 10^3/uL (0.00-0.10); ADD DIFF? NO; ADD MORPH? NO; ADD SCAN? NO; ATYPICAL LYMPHOCYTE FLAG 20 (0-99); FRAGMENT RBC FLAG 0 (0-99); HEMATOCRIT 40.5 % (40.0-51.0); HEMOGLOBIN 14.1 g/dL (13.7-17.5); LEFT SHIFT FLG 20 (0-99); LIPEMIA HEMOLYSIS FLAG 90 (0-99); MEAN CELL HEMOGLOBIN 33.1 pg (27.9-34.1); MEAN CELL HEMOGLOBIN CONCENTR. 34.8 g/dL (32.4-36.7); MEAN CELL VOLUME 95.1 fL (81.5-99.8); MEAN PLATELET VOLUME 10.4 fL (8.7-11.7); PLATELET CLUMPS FLAG 0 (0-99); PLATELET COUNT 204 10^3/uL (150-400); RED BLOOD CELL COUNT 4.26 10^6/uL (4.40-6.38); RED CELL DISTRIBUTION WIDTH 12.8 % (11.5-15.2)
[2017-01-19 20:00] LABS: INR 1.02 (0.83-1.16); PROTIME(PATIENT) 13.3 SEC (12.0-15.0)
[2017-01-19 20:01] LABS: APTT 26.2 SEC (23.0-38.0)
[2017-01-19 20:08] LABS: ANION GAP 9 mEq/L (8-16); CALCIUM 9.5 mg/dL (8.5-10.4); CARBON DIOXIDE 25 mEq/l (22-31); CHLORIDE 105 mEq/L (97-110); CREATININE 0.8 mg/dL (0.7-1.3); GLOMERULAR FILTRATION RATE > 60; GLUCOSE 97 mg/dL (70-100); POTASSIUM 3.9 mEq/L (3.5-5.2); SODIUM 139 mEq/L (134-144)
[2017-01-19] MEDS ORDERED: niCARdipine/NACL/200 ML BAG IV ONE (20:56)
[2017-01-19] MEDS ORDERED: niCARdipine/NACL 200 ML IV SCH (21:00)
[2017-01-19] MEDS ORDERED: MAGNESIUM HYDROXIDE 30 ML UDCUP PO PRN (21:13)
[2017-01-19] MEDS ORDERED: LACTULOSE 20 GM/30 ML UDCUP PO PRN (21:13)
[2017-01-19] MEDS ORDERED: ACETAMINOPHEN 325 MG TAB PO PRN (21:13)
[2017-01-19] MEDS ORDERED: HYDROCODONE/APAP 5/325 TAB PO PRN (21:13)
[2017-01-19] MEDS ORDERED: ONDANSETRON 4 MG/2 ML VIAL IVP PRN (21:13)
[2017-01-19] MEDS ORDERED: POLYETHYLENE GLYCOL 3350 17 GM PKT PO PRN (21:13)
[2017-01-19] MEDS ORDERED: BISACODYL 10 MG SUPP PR PRN (21:13)
[2017-01-19] MEDS ORDERED: ONDANSETRON DISINTEGRATING 4 MG TAB PO PRN (21:13)
[2017-01-19] MEDS ORDERED: NS W/ 20 KCl/L 1,000 ML IV SCH (21:15)
--- NOTE | 2017-01-19 21:55 | GHP ---
[f rep st] HISTORY AND PHYSICAL DATE OF ADMISSION: 01/19/2017 The patient is seen in the emergency department by the neurosurgical services at 20:40 on 01/19/2017 in the ER room 1. CHIEF COMPLAINTS: Acute onset of slurred speech. HISTORY OF PRESENT ILLNESS: The patient is a 71-year-old male who presented to the emergency depart [facility] with worsening slurred speech. The patient sustained a ski injury in November of 2016. He was he lmeted but was able to continue skiing. He had periodic headaches and on January 06 he was on a hike whe n he developed some significant word-finding difficulty. He came into the emergency department was found to have a significant size subdural hematoma, and he was in the hospital for 5 days. He initi ally had a drain placed but this was removed. The patient was discharged home and did well until days ago. On Thursday, he described increasing fatigue and I spoke with him on the phone that day. I recommended he to go to the emergency department for a CT scan as well as evaluation, and letty helms did get evaluated and was given fluids and was sent home and no CT scan was performed. Two days a go he was seen in the emergency department at that time, was discharged home as mentioned. Today nguyen d increasing fatigue. At about 3 o'clock his noticed that he was reading a book. She returned home at 6 o'clock and noted that he had slurred speech and over the course of his time here in the emergency department, Dr. Lazcano did notice that he had increasing fatigue, new onset of mild numbn ess in the right hand as well as worsening issues with speech as his main complaint. Currently estelle es any headache or neck pain. No nausea, vomiting. No fevers or chills. He denies any other upper or lower extremity complaints such as numbness, tingling, or weakness other than noted in the right hand with some mild numbness. PAST MEDICAL HISTORY: 1. Diabetes type 2. 2. Hypertension. 3. Recent subdural hematoma evacuation on January 06, 2017. 4. History of hernia repair. PAST SURGICAL HISTORY: See above. MEDICATIONS: 1. Allopurinol 300 mg p.o. daily. 2. Vitamin D3 2000 mg p.o. daily. 3. Glyburide 1.25 mg p.o. twice daily. 4. Losartan potassium 100 mg p.o. daily. 5. Kombiglyze XR 2.5-1000 mg tablet, 1 tablet p.o. twice daily. 6. Zocor 20 mg p.o. at bedtime. 7. Tylenol 650 mg p.o. q.4 hours as needed. 8. Norvasc 5 mg p.o. daily. 9. Keppra 1000 mg p.o. twice daily. ALLERGIES: No known drug allergies. FAMILY HISTORY: Brother with obesity and diabetes. SOCIAL HISTORY: Patient is . Has 3 biological children and 4 step children. He smoked at a younger age. He drank alcohol at a younger age but currently does not smoke or drink any alcohol. He does not use any illicit drugs. IMMUNIZATIONS: Reported up to date. TRAVEL: No recent travel. REVIEW OF SYSTEMS: Complete 10-point review of systems as noted above. Otherwise negative. PHYSICAL EXAMINATION: GENERAL: This is an awake, alert, oriented male, in no acute distress. PATRICIA L SIGNS: Blood pressure 94/90 with a MAP of 124, heart rate of 73, 18 respirations, 97% on room air . HEENT: Head is normocephalic, atraumatic. Pupils are equal, round, reactive to light. EOMIs in tact. Full visual linares by confrontation. Ears patent. Nose is patent. NECK: Soft and supple. No midline tenderness. Full range of motion in flexion, extension, lateral bending, rotation. RES PIRATORY/CARDIAC: Regular rate and rhythm. No murmurs, rubs, gallops, rales, rhonchi, wheeze or ru b. ABDOMEN: Soft, nontender. No peritoneal signs. /RECTAL: Deferred. NEURO: Patient is awak e, alert, and oriented but does have significant expressive aphasia with 1-2 word answers. Cranial nerves 2-12 grossly intact. Motor: Patient has 5/5 strength in all muscle groups of bilateral uppe r and lower extremities to include deltoids, biceps, triceps, brachioradialis, wrist flexors and ext ensors, kiln remover intrinsic, fingers, iliopsoas quadriceps, hamstring, plantar flexion, dorsiflexion, EHL testing. Sensation is grossly intact to light touch throughout all dermatome distributions upper a nd lower extremities. Negative straight leg raise. Negative SRI test. Reflexes of biceps, shonda ps, brachioradialis, knee jerks, and ankle jerk are 2+/4. Toes are downgoing bilaterally. Villareal' s negative. Babinski negative. No evidence of clonus. Patient does have a slight pronator drift t o the right. MEDICAL DECISION MAKING/DIAGNOSTIC STUDIES: Laboratory tests obtained 01/19/2017 shows a white coun t of 9.75, an H and H of 14.1/40.5 with a platelet count of 204. Coags on 01/19/2017 shows a PT of 13.3, INR of 1.02 and a PTT of 26.2. Chemistry on 01/19/2017; sodium 139, potassium 3.9, chloride 1 05, CO2 25, BUN 15, creatinine 0.8, and glucose 97. CT scan of the head obtained 01/19/2017 at 19:45 shows an increased size of the mixed density subdur al hematoma overlying the left cerebral hemisphere. Post drain removal with 10 mm of left to right midline shift, previously at 8 mm. His images are reviewed with Dr. Morris. IMPRESSION: 1. Acute onset of aphasia with worsening mixed density subdural hematoma in the left cerebral hemis phere, with 10 mm of left to right midline shift. 2. History of diabetes. 3. History of 1 kidney. 4. History of hypertension. PLAN AND DISCUSSION: The patient is a 71-year-old male who was seen evaluated by the neurosurgical service, both myself and Dr. Morris in the emergency department. The patient is currently on Keppra . We will admit him to the intensive care unit. We will review through his images and develop a tr eatment plan. The patient likely may need reduce craniotomy on the left side to evacuate this subdu ral hematoma. It appears to be impacting his speech at this time. His was present throughout the visit who provided majority of his history. The patient is able to follow commands appropriatel y, has good strength in upper or lower extremities. His really main complaint and neurologic defici ts, he has does have a slight Romberg on the right and an expressive aphasia. All questions and con cerns were answered. /[id number]/MODL
[2017-01-19] MEDS ORDERED: glyBURIDE 2.5 MG TAB PO PRN (22:30)
[2017-01-19] MEDS: niCARdipine/NACL 200 ML IV SCH ×2 (23:00→23:56)
[2017-01-19] MEDS ORDERED: D5W NS W/ 20 KCl/L 1,000 ML IV SCH (23:30)
[2017-01-19] MEDS: TRANEXAMIC ACID 650 MG TAB PO SCH (23:54)
[2017-01-20] MEDS: niCARdipine/NACL 200 ML IV SCH ×4 (01:36→23:02)
[2017-01-20] MEDS ORDERED: ceFAZolin 2 GM/DEXTROSE 100 ML IV ONE (08:31)
--- NOTE | 2017-01-20 08:36 | NEUSURGPN ---
Assessment/Plan: Assessment: 71 yo male that was readmitted last night with reaccumulation of SDH Plan: -SDH: Pt with repeat CT head that shows stable 11 mm of shift with SDH on left -spoke with Dr Castillo and wants to take patient back to OR today at [phone] -NPO -orders in place -no new events or issues -pt with slight improvement of aphasia symptoms -consents to be done later this am -pt will be marked -call with any questions or concerns -pt and understand and agree Subjective: Awake and alert. No new events. Pt with slightly improved aphasia. No nguyen/neck /chest/abd or gu complaints. Objective: AAO, pt with continued aphasia CN 2-12 grossly intact +lt touch JESIKA x 4 Neuro Check Frequency: q1hr Urinary Catheter in Place: No - Physician Discussed Patient with : Anna Patient Seen by : Anna Neurosurgery Physical Exam - Vitals, I&O, Labs I and O 01/19/17 01/20/17 01/21/17 05:59 05:59 05:59 Intake Total 1835 Output Total 500 Balance 1335 Weight 73.8 kg Intake: Oral (ml) 600 IV Infused (ml) 1235 NS W/ 20 KCl/L 1,000 ml @ 460 75 mls/hr IV CONT SHAQUILLE Rx #:[id number] niCARdipine/NACL 200 ml @ 775 Titrate IV CONT SHAQUILLE Rx#: [id number] Output: Urine (ml) 500 Other: Number of Voids 1 Toilet 2 Vital Signs Temp Pulse Resp BP Pulse Ox 37.1 C 73 22 H 138/59 H 96 01/20/17 08:00 01/20/17 08:00 01/20/17 08:00 01/20/17 08:00 01/20/17 08:00 ICD10 Worksheet Patient Problems: Problems Problem Status Onset Aphasia Acute Subdural hematoma Acute Subdural hematoma Acute
[2017-01-20] MEDS: amLODIPine BESYLATE 5 MG TAB PO SCH (08:43)
[2017-01-20] MEDS: LOSARTAN POTASSIUM 50 MG TAB PO SCH (08:43)
[2017-01-20] MEDS: ATORVASTATIN CALCIUM 10 MG TAB PO SCH (08:43)
[2017-01-20] MEDS: METFORMIN PO SCH ×2 (08:45→19:34)
[2017-01-20] MEDS: SAXAGLIPTIN PO SCH ×2 (08:45→19:34)
[2017-01-20] MEDS: SENNOSIDES/DOCUSATE SODIUM TAB PO SCH ×2 (08:45→21:30)
[2017-01-20] MEDS: TRANEXAMIC ACID 650 MG TAB PO SCH (08:45)
[2017-01-20] MEDS ORDERED: levETIRAcetam 500 MG TAB PO SCH ×2 (09:00)
[2017-01-20] MEDS ORDERED: levETIRAcetam 1,500 MG in NS 100 ML IV ONE (09:30)
[2017-01-20] MEDS ORDERED: THROMBIN (BOVINE) 5,000 UNIT VIAL TP ONE (12:51)
[2017-01-20] MEDS ORDERED: BUPIVACAINE/EPI 0.25% 30 ML SDV ONE (12:52)
[2017-01-20] MEDS ORDERED: BACITRACIN 50,000 UNITS/10 ML SYR IRR ONE ×4 (12:52→15:15)
[2017-01-20] MEDS ORDERED: MANNITOL 20% 100 GM/500 ML BAG IV ONE (13:01)
[2017-01-20] MEDS ORDERED: fentaNYL 100 MCG/2 ML INJ ONE ×4 (13:37→15:57)
[2017-01-20] MEDS ORDERED: PROPOFOL 200 MG/20 ML VIAL ONE (13:37)
[2017-01-20] MEDS ORDERED: ROCURONIUM 50 MG/5 ML VIAL ONE ×2 (14:25)
[2017-01-20] MEDS ORDERED: DEXAMETHASONE 4 MG/ML VIAL ONE (14:26)
[2017-01-20] MEDS ORDERED: LIDOCAINE 2% 5 ML SDV ONE (14:26)
[2017-01-20] MEDS ORDERED: ONDANSETRON 4 MG/2 ML VIAL ONE (14:26)
[2017-01-20] MEDS ORDERED: SUGAMMADEX SODIUM 200 MG/2 ML VIAL IVP ONE (14:40)
[2017-01-20] MEDS ORDERED: SURGIFLO MATRIX KIT WITH THROMBIN TP ONE (15:06)
[2017-01-20] MEDS ORDERED: DESMOPRESSIN ACETATE 30 MCG in NS 50 ML IV ONE (16:00)
[2017-01-20] MEDS ORDERED: HYDROCODONE/APAP 5/325 TAB PO PRN (16:30)
[2017-01-20] MEDS ORDERED: LABETALOL HCL 50 MG/10 ML SYR ONE (16:32)
--- NOTE | 2017-01-20 16:33 | POSTOPPROG ---
Post Op Note Date of Operation: 01/20/17 Surgeon: Kirk Castillo [employer] Kitchen: [facility] S[facility] Anesthesiologist: Taras Cartagena Anesthesia: GET(General Endotracheal) Pre-op Diagnosis: subacute SDH Post-op Diagnosis: subacute SDH Indication: speech deficits with finding of subdural hematoma Procedure: craniotomy Findings: brain depression by fluid Inf/Abcess present in the surg proc area at time of surgery?: No EBL: 50-100 Drains: Levon Forman
--- NOTE | 2017-01-20 16:36 | NEUSURGPN ---
Assessment/Plan: 71M s/p repeat craniotomy for evacuation of SDH, now chronic appearing ICU for neurochecks, BP, and drain management JPx1 to dimple suction cardene drip ordered, strict SBP<140 HOB flat overnight until after repeat CT reviewed Repeat CT in AM Cont Keppra 1500mg BID Hyperoxygenation 8L O2 via NRM overnight until CT reviewed If patient still non verbal in AM consider adding seizure med D/W Dr. Castillo Subjective: groggy, following commands Objective: AAOx3 NAD follow commands not speaking, answers yes or no questions with nod of head only EOMI, PEARLA, no facial droop MAEx4 +LT JPx1 incision cdi - Physician Discussed Patient with : Anna Patient Seen by : Anna Neurosurgery Physical Exam - Vitals, I&O, Labs I and O 01/19/17 01/20/17 01/21/17 05:59 05:59 05:59 Intake Total 1835 Output Total 500 Balance 1335 Weight 73.8 kg Intake: Oral (ml) 600 IV Infused (ml) 1235 NS W/ 20 KCl/L 1,000 ml @ 460 75 mls/hr IV CONT SHAQUILLE Rx #:[id number] niCARdipine/NACL 200 ml @ 775 Titrate IV CONT SHAQUILLE Rx#: [id number] Output: Urine (ml) 500 Other: Number of Voids 1 Toilet 2 Vital Signs Temp Pulse Resp BP Pulse Ox 37.1 C 53 L 23 H 142/53 H 97 01/20/17 08:00 01/20/17 13:00 01/20/17 13:00 01/20/17 13:00 01/20/17 13:00 ICD10 Worksheet Patient Problems: Problems Problem Status Onset Aphasia Acute Subdural hematoma Acute Subdural hematoma Acute
[2017-01-20] MEDS ORDERED: HYDROmorphONE/DILAUDID 1 MG/ML SYR IVP PRN (16:37)
[2017-01-20] MEDS: NS W/ 20 KCl/L 1,000 ML IV SCH (17:33)
[2017-01-20] MEDS: levETIRAcetam 1,500 MG in NS 100 ML IV SCH (21:29)
[2017-01-20] MEDS: TRANEXAMIC ACID 650 MG in NS 100 ML IV SCH (21:30)
[2017-01-21] MEDS: niCARdipine/NACL 200 ML IV SCH ×7 (01:39→22:01)
--- NOTE | 2017-01-21 08:02 | SOAPPROG ---
SOAP Progress Note Assessment/Plan: Assessment: 71 yo M POD #1 left craniotomy for evacuation of SDH Plan: neuro: mentation stable, still with mixed dysphasia on keppra 1500 mg po bid head CT 01/21/17 shows improved SDH with residual SDH PT/OT/ST cardine to keep SBP < 140 mmhg an ancef please call with neuro changes discussed with Dr Castillo 01/21/17 07:59 Subjective: patient denies headache, no N/V. still with difficulty speaking Objective: Vital Signs Temp Pulse Resp BP Pulse Ox 36.9 C 83 12 139/72 H 100 01/21/17 04:00 01/21/17 07:00 01/21/17 07:00 01/21/17 07:00 01/21/17 07:00 01/20/17 01/21/17 01/22/17 05:59 05:59 05:59 Intake Total 1835 4400.1 Output Total 500 3305 Balance 1335 1095.1 PT 13.3 SEC (12.0-15.0) 01/19/17 19:32 INR 1.02 (0.83-1.16) 01/19/17 19:32 Awake, alert PERRL, no facial droop, receptive and expressive dysphasia MOEX 4 C/D/I ICD10 Worksheet Patient Problems: Problems Problem Status Onset Aphasia Acute Subdural hematoma Acute Subdural hematoma Acute
[2017-01-21] MEDS: levETIRAcetam 1,500 MG in NS 100 ML IV SCH (09:00)
[2017-01-21] MEDS: TRANEXAMIC ACID 650 MG in NS 100 ML IV SCH ×2 (09:00→21:41)
[2017-01-21] MEDS: LOSARTAN POTASSIUM 50 MG TAB PO SCH (10:18)
[2017-01-21] MEDS: ATORVASTATIN CALCIUM 10 MG TAB PO SCH (10:18)
[2017-01-21] MEDS: amLODIPine BESYLATE 5 MG TAB PO SCH (10:18)
[2017-01-21] MEDS: SENNOSIDES/DOCUSATE SODIUM TAB PO SCH ×2 (10:23→21:41)
[2017-01-21] MEDS: METFORMIN PO SCH ×2 (11:24→21:42)
[2017-01-21] MEDS: SAXAGLIPTIN PO SCH ×2 (11:24→21:42)
[2017-01-21] MEDS: NS W/ 20 KCl/L 1,000 ML IV SCH (14:43)
--- NOTE | 2017-01-21 15:56 | PDINTPN ---
Early Childhood Progress Note Assessment/Plan: Assessment/plan: 71 M s/p recent head injury while skiing resulted in SDH. He was managed at [facility] and appeared stable for dc, but returned with worsening aphasia and was found to have an increase in the known SDH. He subsequently had evacuation via craniotomy 01/20. A slight facial droop was noted earlier on POD #1, but appeared to improve without additional intervention. * SDH- clinically stable on cardene drip. He is starting to say yes/no but clearly understands well. I found it difficult to identify his facial droop, but he continues to get q1 hour neuro checks. Objective: Vital Signs Temp Pulse Resp BP Pulse Ox 36.9 C 59 L 12 114/58 L 95 01/21/17 11:59 01/21/17 15:00 01/21/17 15:00 01/21/17 15:00 01/21/17 15:00 01/20/17 01/21/17 01/22/17 05:59 05:59 05:59 Intake Total 1835 4400.1 Output Total 500 3305 1305 Balance 1335 1095.1 -1305 PT 13.3 SEC (12.0-15.0) 01/19/17 19:32 INR 1.02 (0.83-1.16) 01/19/17 19:32 Physical Exam - Physical Exam General Appearance: alert, no apparent distress EENT: PERRL/EOMI Neck: supple Respiratory: lungs clear, normal breath sounds, No respiratory distress Cardiac/Chest: regular rate, rhythm, No edema Abdomen: normal bowel sounds, non-tender, soft, No distended Skin: normal color, warm/dry Lymphatic: no adenopathy Extremities: No non-tender, No pedal edema Neuro/Psych: alert, normal mood/affect, oriented x 3 (via yes/no head shaking), abnormal cerebellar tests (perhaps) ICD10 Worksheet Patient Problems: Problems Problem Status Onset Aphasia Acute Subdural hematoma Acute Subdural hematoma Acute
[2017-01-21] MEDS ORDERED: hydrALAZINE 20 MG/ML VIAL IVP PRN (17:09)
[2017-01-21] MEDS ORDERED: PHENYTOIN SODIUM 1,000 MG in NS 100 ML IV ONE (17:30)
[2017-01-21] MEDS ORDERED: LORazepam 2 MG/ML INJ ONE (18:06)
[2017-01-21] MEDS: LORazepam 2 MG/ML INJ IVP PRN ×2 (19:05→22:15)
[2017-01-21] MEDS: levETIRAcetam 500 MG TAB PO SCH (21:41)
[2017-01-21] MEDS: INSULIN REGULAR, HUMAN 100 UNIT/1 ML VIAL LOW SC SCH (21:42)
[2017-01-21] MEDS ORDERED: PHENYTOIN SODIUM 100 MG/2 ML VIAL IVP SCH (22:00)
[2017-01-22 06:14] LABS: ANION GAP 6 mEq/L (8-16); CALCIUM 8.4 mg/dL (8.5-10.4); CARBON DIOXIDE 21 mEq/l (22-31); CHLORIDE 106 mEq/L (97-110); CREATININE 0.6 mg/dL (0.7-1.3); GLOMERULAR FILTRATION RATE > 60; GLUCOSE 236 mg/dL (70-100); POTASSIUM 4.4 mEq/L (3.5-5.2); SODIUM 133 mEq/L (134-144)
[2017-01-22] MEDS: LORazepam 2 MG/ML INJ IVP PRN (07:06)
--- NOTE | 2017-01-22 07:50 | NEUSURGPN ---
Assessment/Plan: Assessment: 71 yo M POD #2 left craniotomy for evacuation of SDH Plan: neuro: mentation stable, still with mixed dysphasia on keppra 1500 mg po bid,, Dilantin 100mg tid with break through ativan. Did have 3 seizure events over night and one in the room this am. Will consult neurology. Corrected Dilantin 11.5, will give a 500mg Dilantin 500mg now and start on 200mg bid tonight. head CT 01/21/17 shows improved SDH with residual SDH PT/OT/ST cardine to keep SBP < 140 mmhg Continue subglaeal BEHZAD this am. please call with neuro changes discussed with Dr Castillo Subjective: Denies any headache, nausea, dizziness Objective: NAD A&Ox3, mild dysphagia, temoring in jaw after period of increased excitable/ activity. Incision c/d/i. CN II-XII grossly intact. EOMI. 01/09 and equal in BUE and BLE. Catheter Insertion Date: 01/21/17 - Physician Discussed Patient with : Anna Neurosurgery Physical Exam - Vitals, I&O, Labs I and O 01/21/17 01/22/17 01/23/17 05:59 05:59 05:59 Intake Total 4400.1 3974 Output Total 3305 3005 Balance 1095.1 969 Intake: Oral (ml) 60 IV Intake (ml) 2462 IV Infused (ml) 1938.1 3914 NS W/ 20 KCl/L 1,000 ml @ 1316 2716 100 mls/hr IV CONT SHAQUILLE Rx#:[id number] Phenytoin Sodium 1,000 mg 100 In Ns 100 ml @ 144 mls/ hr IV ONCE ONE Rx#: [id number] niCARdipine/NACL 200 ml @ 98.1 Titrate IV CONT SHAQUILLE Rx#: [id number] niCARdipine/NACL 200 ml @ 524 1098 Titrate IV CONT SHAQUILLE Rx#: [id number] Output: Urine (ml) 3050 2750 Catheter 3050 2750 Estimated Blood Loss (ml) 75 Wound Drainage (ml) 180 255 Left Levon Forman 180 255 Other: Output Comment Catheter straight cath Number of Voids Catheter 1 Toilet 4 Number of Stools Toilet 1 Bladder Scan Volume (ml) Catheter 583 Post Void Residual Scan Volume (ml) Catheter 40 Vital Signs Temp Pulse Resp BP Pulse Ox 37.2 C 63 12 126/60 H 96 01/22/17 04:00 01/22/17 07:00 01/22/17 07:00 01/22/17 07:00 01/22/17 07:00 Laboratory Results 01/22/17 05:50 ICD10 Worksheet Patient Problems: Problems Problem Status Onset Aphasia Acute Subdural hematoma Acute Subdural hematoma Acute
[2017-01-22] MEDS ORDERED: PHENYTOIN SODIUM IV ONE (08:00)
[2017-01-22] MEDS ORDERED: NS IV ONE (08:00)
[2017-01-22] MEDS: METFORMIN PO SCH (08:19)
[2017-01-22] MEDS: SENNOSIDES/DOCUSATE SODIUM TAB PO SCH (08:19)
[2017-01-22] MEDS: SAXAGLIPTIN PO SCH (08:19)
[2017-01-22] MEDS: levETIRAcetam 500 MG TAB PO SCH (08:19)
[2017-01-22] MEDS: ATORVASTATIN CALCIUM 10 MG TAB PO SCH (08:20)
[2017-01-22] MEDS: amLODIPine BESYLATE 5 MG TAB PO SCH (08:20)
[2017-01-22] MEDS: LOSARTAN POTASSIUM 50 MG TAB PO SCH (08:20)
[2017-01-22] MEDS: TRANEXAMIC ACID 650 MG in NS 100 ML IV SCH (08:30)
[2017-01-22] MEDS: INSULIN REGULAR, HUMAN 100 UNIT/1 ML VIAL LOW SC SCH ×2 (08:53→12:27)
[2017-01-22] MEDS: NS W/ 20 KCl/L 1,000 ML IV SCH (08:56)
[2017-01-22] MEDS ORDERED: LACOSAMIDE 200 MG in NS 50 ML IV ONE (12:41)
[2017-01-22] MEDS ORDERED: LORazepam 2 MG/ML INJ IVP ONE (12:45)
--- NOTE | 2017-01-22 13:47 | NEUSURGPN ---
Assessment/Plan: EDER drain removed intact and [address] Castillo He will call patient's later today Catheter Insertion Date: 01/21/17 Neurosurgery Physical Exam - Vitals, I&O, Labs I and O 01/21/17 01/22/17 01/23/17 05:59 05:59 05:59 Intake Total 4400.1 3974 Output Total 3305 3005 2250 Balance 1095.1 969 -2250 Intake: Oral (ml) 60 IV Intake (ml) 2462 IV Infused (ml) 1938.1 3914 NS W/ 20 KCl/L 1,000 ml @ 1316 2716 100 mls/hr IV CONT SHAQUILLE Rx#:[id number] Phenytoin Sodium 1,000 mg 100 In Ns 100 ml @ 144 mls/ hr IV ONCE ONE Rx#: [id number] niCARdipine/NACL 200 ml @ 98.1 Titrate IV CONT SHAQUILLE Rx#: [id number] niCARdipine/NACL 200 ml @ 524 1098 Titrate IV CONT SHAQUILLE Rx#: [id number] Output: Urine (ml) 3050 2750 2150 Catheter 3050 2750 2150 Estimated Blood Loss (ml) 75 Wound Drainage (ml) 180 255 100 Left Levon Forman 180 255 100 Other: Output Comment Catheter straight cath Number of Voids Catheter 1 Toilet 4 Number of Stools Toilet 1 Bladder Scan Volume (ml) Catheter 583 Post Void Residual Scan Volume (ml) Catheter 40 Vital Signs Temp Pulse Resp BP Pulse Ox 36.6 C 76 20 118/62 95 01/22/17 08:00 01/22/17 13:00 01/22/17 13:00 01/22/17 13:00 01/22/17 13:00 Laboratory Results 01/22/17 05:50 ICD10 Worksheet Patient Problems: Problems Problem Status Onset Aphasia Acute Subdural hematoma Acute Subdural hematoma Acute
[2017-01-22] MEDS ORDERED: PHENYTOIN SODIUM 100 MG/2 ML VIAL IVP SCH ×2 (14:00→21:00)
--- NOTE | 2017-01-22 14:55 | GCON ---
[f rep st] CONSULTATION NEUROLOGY CONSULTATION REFERRING PHYSICIAN: GUADALUPE Sawyer CHIEF COMPLAINT: Repetitive seizures. HISTORY OF PRESENT ILLNESS: The patient is a very pleasant 71-year-old gentleman who has had a left-sided subdural hematoma evacuation x2 done by Neurosurgery. Please see neurosurgical notes for details. He began having witnessed seizures yesterday evening and in the last 12 hours has had anywhere between 20 and 24 definite witnessed focal motor seizures with alteration of consciousness and perhaps more subtle complex partial seizures without motor manifestations as well. We are consulted to help manage these seizures. He was loaded with Keppra and Dilantin by the neurosurgical service and given p.r.n. Ativan. When I evaluated the patient around noon today, he had been on 1500 mg twice daily of Keppra being currently loaded with Dilantin, getting 500 mg of Dilantin this morning. He had received Ativan last night and 1 mg this morning. When I examine the patient. He had 5 or 6 focal seizures in my presence, lasting between 2-4 minutes each. We gave him 2 mg of IV Ativan, followed by 200 mg of IV lacosamide which slowed the seizure activity down. PAST MEDICAL HISTORY: Please see the H and P by Clarence Young dated 01/19/2017. SOCIAL HISTORY: Please see the H and P by Clarence Young dated 01/19/2017. FAMILY HISTORY: Please see the H and P by Clarence Young dated 01/19/2017. HOME MEDICATIONS: Please see the H and P by Clarence Young dated 01/19/2017. PHYSICAL EXAM: VITAL SIGNS: Blood pressure 118/62, respiratory rate 14, O2 saturation between 96% and 100% on room air. He is afebrile. NEUROLOGIC: Patient is awake and alert. He is aphasic with some waxing and waning severity to his language disturbance. 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 On motor exam, the patient had multiple seizures in my presence. They are characterized by clonic activity in the jaw with progression to higher frequency chronic activity with propagation over the right facial muscles, the right facial colonic activity in the entire right face. There is apparent loss of awareness during this time as he is not able to respond. The average duration are lasting between 2 and 4 minutes with postictal tiredness. He also had events of subtle head turns to the right with staring and unresponsiveness, consistent with complex partial seizures without obvious motor activity. IMPRESSION AND PLAN: 1. Subdural hematoma evacuation x2. 2. Complex partial status epilepticus. The patient's clinical history and neurologic exam is consistent with complex partial status epilepticus that is symptomatic to his recent left hemisphere subdural evacuations. He is receiving maximal doses of Keppra and loading doses of Dilantin over the last 12+ hours without cessation of these seizures. Indeed, the seizures were increasing in frequency despite getting escalating doses of anticonvulsant medication. He also received p.r.n. benzodiazepine therapy without resolution of his seizures. Due to the diagnosis being drug-resistant complex partial status epilepticus, I discussed with the patient and his family that transfer to a higher level of care with continuous EEG monitoring is now indicated for continuous EEG to help guide further therapy. This may include a therapeutic coma to stop seizure activity. I spoke to my colleagues at [facility], Dr. Brothers, and they have kindly accepted transfer to their neuro ICU for both his neurosurgical condition and complex partial status epilepticus. We gave him an additional 200 mg of IV lacosamide and 2 mg of Ativan, which seemed to slow down the seizure activity. However, he continued to have some brief complex partial seizures in my presence. Transfer has been arranged for about 30 minutes from the time of this dictation. He has had no generalized tonic-clonic seizures. He will be closely observed until time of transfer. No further recommendations now. I will be in close touch with ICU team if there are any other questions or change in neurologic status. ADDENDUM: Due to logistic difficulties at [facility] at the present moment, we needed to change the transfer to [facility] ICU. Dr. Kay, [facility], kindly accepted transfer to their ICU for cEEG and treatment of focal status epilepticus. BILLING INFORMATION: 90 minutes total critical care time in direct stabilizing the patient for ongoing seizures in my presence, including actively treating the patient with IV medications to treat the seizures and arranging urgent transfer for continuous EEG monitoring in a higher level of care. /[id number]/MODL MTDD
[2017-01-22 15:06] VITALS: BP 117/73; PULSE 66; RESP 19; O2SAT 97
[2017-01-22 16:07] VITALS: TEMP 98.2
--- NOTE | 2017-01-26 11:01 | GOP ---
[f rep st] OPERATIVE REPORT DATE OF OPERATION: 01/20/2017 SURGEON: Kirk Castillo MD FISHING ROD MARKER: Rodriguez Sosa PA-C. ANESTHESIA: GETA. PREOPERATIVE DIAGNOSIS: Recurrent left-sided subdural hematoma with brain compression, midline shif t, and speech dysphagia. POSTOPERATIVE DIAGNOSIS: Recurrent left-sided subdural hematoma with brain compression, midline mary ann ft, and speech dysphagia. PROCEDURE PERFORMED: Repeat left frontoparietal craniotomy for evacuation of subdural hematoma and placement of a subdural drain. FINDINGS: Subacute to chronic recurrent subdural under pressure evacuated, still with significant b rain sag just like first operation. SPECIMENS: None. ESTIMATED BLOOD LOSS: 100 cc. DESCRIPTION OF PROCEDURE: The patient was brought into the operating room and given 2 g of IV Ancef for infection prevention. He was induced under general anesthesia and intubated without difficulty . Appropriate IV access was obtained, and a Ulcero catheter was placed. SCDs were placed to prevent DVT. The patient was placed supine in a neutral position on a regular operating table with his hea d in a horseshoe headrest. The scalp and hair were washed with chlorhexidine shampoo and rubbing al cohol which was allowed to let dry. His hair was parted along the old incision line, and a small am ount of hair was re-shaved. The hair was parted away with bacitracin ointment. A ChloraPrep was us ed to sterilize the skin and scalp, and this was allowed to dry. The incision was lined with steril e blue towels, Ioban, and a sterile cranial drape. Prior to beginning the procedure, time-out was p erformed where all members of Anesthesia, Surgery, and Nursing completed the necessary check list it [facility], and we all agreed to proceed. 0.25% Marcaine with 1:200,000 parts of epinephrine was used for local, and approximately 10 cc was injected. The patient's old incision was identified and opened w ith Metzenbaum scissors by splitting the tissues and cutting the old sutures which were removed and thrown off the field. A cerebellar retractor was placed, and the old craniotomy was identified. Th e craniotomy flap was removed, and the indwelling plate screws were saved for reimplantation at the end of the case. A layer of Gelfoam in the epidural space was irrigated and aspirated off, and the dura was then opened. Immediately upon opening the dura. I could see a subacute clot at the surfac e which was quite pulsatile, and upon breaking it up slightly, it spilled out of the cranium under s ome high-pressure. Beneath that was a layer of more chronic appearing fluid which was easily evacua marce, and beneath that, there was a membrane that was fenestrated, cut, coagulated, and stripped reve aling a deeper compartment with chronic appearing blood products as well. We spent great time irrig ating out all of the old hematoma trying to coagulate all oozy areas and remove membranes so that th e brain could re-expand. Unfortunately, the second time, the patient's brain did not seem to want t o come up to the surface. Although it was improved in appearance from the first operation, I still was a little disappointed in the way it failed to rebound. Once we were confident we had stopped al l major bleeding and evacuated out as much of the hematoma as possible in all directions, a #7 flat EDER drain was placed in the subdural space and tunnelled out of the scalp. The dura was reapproximat ed with 4-0 Nurolon, and a layer of Gel-Foam was placed in the epidural space and tamponaded with co ttonoid patties. The bone flap was replaced, and the wound was irrigated with copious antibiotic so lution to avoid infection. Scalp was closed with inverted interrupted 2-0 Vicryl sutures, and the s kin was closed with a running 4-0 Monocryl. The subdural drainage tube was hooked up to a bulb whic h was placed to half compressed suction. A layer of antibiotic ointment was applied along the incis ion line, and the drapes were removed carefully. The patient was returned to Anesthesia and extubat ed without issue. All counts were correct at the end of the procedure. There were no immediate ane sthetic or surgical complications. The patient returned to his ICU room, and I updated his on the details of the procedure. She was grateful for the care I had given her . Orders were lori maxwell for subdural drain to half bulb suction, flat bed rest, high flow oxygen to reduce pneumocephal us, and a head CT in the morning. Prior to leaving the hospital, the patient was in acceptable neur ologic condition. IMPLANTS: [employer] cranial plates and screws. COMPLICATIONS: None. INDICATIONS FOR PROCEDURE: The patient is a 71-year-old male who is a patient of my own. He presen marce approximately 2 weeks ago to [place] after an episode of speech dysphagia. He had a sizable lef t-sided subdural hematoma at that time, and based on the fact that it was large and he was beginning to become symptomatic, we evacuated it. Postoperatively, there was some recurrent acute blood prod ucts in the subdural space, and the patient's brain did not rebound well and fill that empty space. However, on his discharge head CT, he had much improved shift and there was only a small amount of air in the residual subdural blood on the left side of the subdural space, and I was hopeful that he would do well. He did do quite well for approximately a week and a half, and then earlier today st arted having speech changes and difficulty. He was admitted. Repeat head CT was performed that demonstrated significant increase in the size of the subdural collection on the left side, and he had also increased left to right midline shift com pared to his prior. He was placed on an anticonvulsant, admitted, and I counseled them on the risks and benefits of a second operation. We all agreed it was necessary to evacuate the recurrent blood in the face of new symptoms. Questions were answered, and he did sign informed consent prior to [facility] operation. /[id number]/MODL
== END 2017-01-22 16:23 | disposition short-term general hospital (02) | DRG 26 ==
LOC: F2N 22:21
PROVIDERS: ADMIT Neurological Surgery; ATTEND Neurological Surgery
PROC: 00C40ZZ Extirpation of Matter from Intracranial Subdural Space, Open Approach (ICD-10-PCS; principal; 2017-01-20 14:00)
DX: S06.5X0A Traumatic subdural hemorrhage without loss of consciousness, initial encounter (principal); R47.01 Aphasia; G40.909 Epilepsy, unspecified, not intractable, without status epilepticus; E11.9 Type 2 diabetes mellitus without complications; I10 Essential (primary) hypertension; V00.321D Fall from snow-skis, subsequent encounter; Y93.23 Activity, snow (alpine) (downhill) skiing, snowboarding, sledding, tobogganing and snow tubing
CPT/HCPCS: 92523-GN; 92610-GN; 96374; 97162-GP; 97165-GO; 97168-GO; C1713; G8978-GP-CJ; G8979-GP-CI; G8987-GO-CJ; G8987-GO-CL; G8988-GO-CI; G8996-GN-CJ; G8997-GN-CH; G9162-GN-CM; G9163-GN-CM; G9164-GN-CM; J0360; J0690; J1100; J1815; J1953; J2060; J2405; J2597; J2704; J3010